=== PATIENT | male | born 1985 ===

== ENCOUNTER 2018-07-12 10:39 | Inpatient (IN) | payer MEDICAID ==
[2018-07-12] MEDS ORDERED: Sodium Chloride 0.9% 1,000 ML IV ONE (12:02)
[2018-07-12] MEDS ORDERED: Morphine 4 MG/ML VIAL IV STA (12:02)
[2018-07-12 12:14] LABS: BASO # 0.1 K/uL (0.0-0.2); BASO % 0.5 % (0.0-2.0); EOS % 0.1 % (0.0-4.0); HEMOGLOBIN 14.2 g/dL (12.0-18.0); LYMPH # 1.1 K/uL (1.0-4.3); LYMPH % 6.8 % (20.0-40.0); MEAN CELL VOLUME 89.4 fL (80.0-94.0); MEAN CORPUSCULAR HEMOGLOBIN 30.4 pg (27.0-31.0); MEAN CORPUSCULAR HGB CONC 34.1 g/dL (33.0-37.0); MEAN PLATELET VOLUME 7.7 fL (7.2-11.7); MONO # 1.7 K/uL (0.0-0.8); MONO % 10.1 % (0.0-10.0); NEUT # 13.6 K/uL (1.8-7.0); NEUT % 82.5 % (50.0-75.0); NRBC % 0.1 % (0.0-2.0); PLATELET COUNT 167 K/uL (130-400); RBC 4.67 Mil/uL (4.40-5.90); RED CELL DISTRIBUTION WIDTH 12.6 % (11.5-14.5); WHITE BLOOD COUNT 16.5 K/uL (4.8-10.8)
[2018-07-12 12:25] LABS: VENOUS BLOOD GAS BASE EXCESS 5.6 mmol/L (0.0-2.0); VENOUS BLOOD GAS PCO2 60 mmHg (40-60); VENOUS BLOOD GAS PO2 21 mm/Hg (30-55); VENOUS BLOOD PH 7.35 (7.32-7.43)
[2018-07-12 12:28] LABS: ALB/GLOB RATIO 1.2 (1.0-2.1); ALBUMIN 4.1 g/dL (3.5-5.0); ALT/SGPT 47 U/L (21-72); AST/SGOT 34 U/L (17-59); BLOOD UREA NITROGEN 8 mg/dL (9-20); CALCIUM 8.8 mg/dl (8.6-10.4); GFR NON-AFRICAN AMERICAN > 60
[2018-07-12 12:30] LABS: SQUAMOUS EPITHIAL < 1 /hpf (0-5); URINE BILIRUBIN NEGATIVE (NEGATIVE); URINE BLOOD 1+ (NEGATIVE); URINE CLARITY Clear (Clear); URINE COLOR Yellow (YELLOW); URINE GLUCOSE (UA) NORMAL (Normal); URINE LEUKOCYTE ESTERASE NEG Leu/uL (Negative); URINE PROTEIN NEGATIVE (NEGATIVE)
[2018-07-12] MEDS ORDERED: Morphine 4 MG/ML VIAL ONE (12:37)
[2018-07-12] MEDS ORDERED: Sodium Chloride 0.9% 1,000 ML ONE (12:37)
[2018-07-12 12:48] LABS: BARBITURATES, UR NEGATIVE (NEGATIVE); PHENCYCLIDINE, UR NEGATIVE (NEGATIVE)
--- NOTE | 2018-07-12 13:06 | CT ---
Date of service: 07/12/2018 PROCEDURE: CT Abdomen and Pelvis without intravenous contrast HISTORY: Right-sided abdominal pain COMPARISON: None TECHNIQUE: CT scan of the abdomen and pelvis was performed without administration of intravenous contrast. Oral contrast was not administered. Coronal and sagittal reformatted images were obtained. Radiation dose: Total exam DLP = 1089.33 mGy-cm. This CT exam was performed using one or more of the following dose reduction techniques: Automated exposure control, adjustment of the mA and/or kV according to patient size, and/or use of iterative reconstruction technique. FINDINGS: LOWER THORAX: The visualized lungs are clear. LIVER: Mild hepatomegaly and fatty liver. Focal area attenuation in the right hepatic lobe adjacent to the fundus of the gallbladder likely represents reactive edema. No gross lesion or ductal dilatation. GALLBLADDER AND BILE DUCTS: The gallbladder is distended and there is irregular gallbladder wall thickening and edema with pericholecystic fluid. No sonographic evidence for choledocholithiasis. PANCREAS: Normal in size. No gross lesion or ductal dilatation. SPLEEN: Mild splenomegaly. ADRENALS: Normal in size. No discrete nodule. KIDNEYS AND URETERS: Both kidneys are normal in size. No hydronephrosis or nephrolithiasis. VASCULATURE: Normal in caliber. No aortic aneurysm. No aortic atherosclerotic calcification or mural plaque present. BOWEL: Evaluation of the bowel is limited in the absence of oral contrast. The small bowel loops are normal in caliber. The colon is normal in size. There is moderate amount of stool in the colon. No bowel dilatation or wall thickening. No bowel obstruction. APPENDIX: Normal appendix. PERITONEUM: No free fluid. No free air. LYMPH NODES: No enlarged lymph nodes. BLADDER: Partially decompressed. REPRODUCTIVE: The prostate gland is normal in size. BONES: No acute fracture. Within normal limits for the patient's age. OTHER FINDINGS: None. IMPRESSION: 1. Distended gallbladder with irregular wall thickening/edema and pericholecystic fluid concerning for acute cholecystitis. Please correlate with right upper quadrant ultrasound. 2. Mild hepatosplenomegaly and fatty liver.
[2018-07-12 13:08] LABS: BENZODIAZEPINES, UR POSITIVE (NEGATIVE); OPIATES, UR POSITIVE (NEGATIVE)
[2018-07-12 13:37] LABS: MONOCYTE 9 % (0-10); PLATELET ESTIMATE NORMAL (NORMAL); TOTAL CELLS COUNTED 100
[2018-07-12 13:38] LABS: LYMPHOCYTE 9 % (20-40); NEUTROPHIL 82 % (50-75)
--- NOTE | 2018-07-12 13:47 | CT ---
CT right femur HISTORY: Pain. COMPARISON: None available. TECHNIQUE: Multiple contiguous axial images were performed through the right femur without the use of intravenous contrast. Subsequently, sagittal and coronal reformatted images were obtained. This CT exam was performed using one or more of the following dose reduction techniques: Automated exposure control, adjustment of the mA and/or kV according to patient size, and/or use of iterative reconstruction technique. Findings: No evidence of acute displaced fracture or dislocation. Mild narrowing of the right hip joint space. Mild femorotibial compartment joint space narrowing at the level of the knee joint. Mild lateral subluxation of the patella. Small suprapatellar joint effusion. Colonic diverticulosis. Impression: 1. No evidence of acute displaced fracture or dislocation. 2. Mild narrowing of the right hip joint space. 3. Mild femorotibial compartment joint space narrowing at the level of the knee joint. Mild lateral subluxation of the patella. Small suprapatellar joint effusion. If pain persists, consider correlation with MRI.
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
--- NOTE | 2018-07-12 15:27 | US ---
Date of service: 07/12/2018 HISTORY: r/o acute cholecystitis - CT done today COMPARISON: CT abdomen and pelvis performed earlier the same day. TECHNIQUE: Sonographic evaluation of the abdomen. FINDINGS: LIVER: Measures 16.4 cm. There is diffuse increased echogenicity of the liver parenchyma. There is a 1 5 x 1.5 x 1.3 cm well-circumscribed round homogeneously hyperechoic subcapsular lesion in the right hepatic lobe. There is an apparent 2.5 x 1.6 x 2.0 cm hypoechoic lesion in the right hepatic lobe adjacent to the gallbladder fossa. No intrahepatic bile duct dilatation. GALLBLADDER: The gallbladder is filled with echogenic sludge. There is diffuse wall thickening and edema. There is mild pericholecystic fluid. The sonographic Rawls's sign is negative. COMMON BILE DUCT: Measures 4.0 mm. No stones. No dilatation. PANCREAS: Unremarkable as visualized. No mass. No ductal dilatation. RIGHT KIDNEY: Measures 10.9cm. Normal echogenicity. No calculus, mass, or hydronephrosis. LEFT KIDNEY: Measures 10.9cm. Normal echogenicity. No calculus, mass, or hydronephrosis. SPLEEN: Enlarged and measures 16.4 cm. Normal echotexture AORTA: No aneurysmal dilatation. IVC: Unremarkable. OTHER FINDINGS: None. IMPRESSION: 1. Sludge filled gallbladder with thick irregular avila, wall edema and mild pericholecystic fluid. The sonographic Rawls's sign is negative. Findings could represent acalculous cholecystitis in the appropriate clinical setting. Clinical follow-up is advised. 2. 2.5 x 1.6 x 2.0 cm fluid density lesion with irregular avila in the right hepatic lobe adjacent to the gallbladder fossa could represent reactive fluid collection. There is lesion is not completely characterized. CT scan of the abdomen without and with intravenous contrast would be helpful for further characterization. 3. 1.5 cm smoothly marginated round subcapsular lesion in the right hepatic lobe is statistically most compatible with a hemangioma. 4. Mild hepatosplenomegaly and fatty liver.
[2018-07-12] MEDS ORDERED: Lactated Ringer's 1,000 ML IV SCH (16:30)
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
[2018-07-12] MEDS ORDERED: Lactated Ringer's 1,000 ML ONE (17:16)
[2018-07-12] MEDS ORDERED: Piperacillin/Tazobact 3.375 gm 100 ML IVPB ONE (17:16)
[2018-07-12] MEDS: Piperacill/Tazo 3.375gm in Dex 3.375 GM/50 ML BAG IVPB SCH ×2 (17:17→21:54)
[2018-07-12] MEDS: Lactated Ringer's 1,000 ML IV SCH (18:04)
[2018-07-12] MEDS: Docusate-Senna 50 mg-8.6 mg Tab PO SCH (20:25)
[2018-07-13] MEDS: Lactated Ringer's 1,000 ML IV SCH ×3 (01:50→18:30)
[2018-07-13] MEDS: Piperacill/Tazo 3.375gm in Dex 3.375 GM/50 ML BAG IVPB SCH ×4 (04:52→22:00)
[2018-07-13 07:40] LABS: BASO % 0.2 % (0.0-2.0); EOS % 0.2 % (0.0-4.0); HEMOGLOBIN 13.7 g/dL (12.0-18.0); LYMPH % 6.2 % (20.0-40.0); MEAN CELL VOLUME 88.3 fL (80.0-94.0); MEAN CORPUSCULAR HEMOGLOBIN 30.4 pg (27.0-31.0); MEAN CORPUSCULAR HGB CONC 34.4 g/dL (33.0-37.0); MEAN PLATELET VOLUME 8.4 fL (7.2-11.7); MONO # 1.7 K/uL (0.0-0.8); MONO % 10.9 % (0.0-10.0); NEUT # 12.9 K/uL (1.8-7.0); NEUT % 82.5 % (50.0-75.0); PLATELET COUNT 142 K/uL (130-400); RED CELL DISTRIBUTION WIDTH 12.5 % (11.5-14.5); WHITE BLOOD COUNT 15.6 K/uL (4.8-10.8)
[2018-07-13 07:59] LABS: INR 1.5; PROTHROMBIN TIME 16.9 SECONDS (9.7-12.2)
[2018-07-13 08:23] LABS: ALB/GLOB RATIO 1.2 (1.0-2.1); ALBUMIN 3.4 g/dL (3.5-5.0); ALT/SGPT 64 U/L (21-72); AST/SGOT 45 U/L (17-59); BLOOD UREA NITROGEN 9 mg/dL (9-20); CALCIUM 8.7 mg/dl (8.6-10.4); GFR NON-AFRICAN AMERICAN > 60
[2018-07-13 08:36] LABS: BANDS 5 % (0-2); LYMPHOCYTE 5 % (20-40); MONOCYTE 10 % (0-10); NEUTROPHIL 80 % (50-75); PLATELET ESTIMATE NORMAL (NORMAL); TOTAL CELLS COUNTED 100
[2018-07-13] MEDS: Docusate-Senna 50 mg-8.6 mg Tab PO SCH (09:47)
--- NOTE | 2018-07-13 10:37 | MRI ---
MRCP limited Indication: r/o Choledocholithiasis Technique: Multiplanar, multisequence MR images of the abdomen were obtained, including heavily T2 weighted MRCP images of the biliary system. Rotating maximum intensity projection images of the biliary system were generated. A total of 485 images were submitted for review. Comparison: Abdominal ultrasound 07/12/18, CT abdomen pelvis without contrast performed 07/12/18 Findings: Hepatomegaly. Distended gallbladder with gallbladder wall thickening/pericholecystic edema. Complex cystic structures containing fluid fluid levels are noted at the gallbladder fossa several of which may communicate with the gallbladder itself. There is no intrahepatic biliary ductal dilatation. The common bile duct appears within normal limits in caliber and tapers distally. The pancreatic duct appears within normal limits of caliber. No filling defects are seen in the common bile duct or pancreatic duct. 18 mm probable splenule. Splenomegaly. The adrenal glands, kidneys, and pancreas appear unremarkable. No bulky abdominal lymphadenopathy is seen. No ascites. No acute osseous abnormality is detected. Impression: No filling defects seen within the common bile duct which appears within normal limits of caliber. Distended gallbladder with gallbladder wall thickening pericholecystic edema consistent with history of acute cholecystitis. Correlate clinically. Additional complex cystic structures containing fluid fluid levels are noted at the gallbladder fossa, several of which may communicate with the gallbladder itself. Etiology of these findings unclear. Considerations include abscess, neoplasm, complex cysts. Correlate clinically. Splenomegaly. Hepatomegaly.
--- NOTE | 2018-07-13 11:10 | VASCLAB ---
Date of service: 07/12/2018 PROCEDURE: Right Lower Extremity Venous Duplex Exam. HISTORY: leg pain r/o DVT PRIORS: None. TECHNIQUE: Right common femoral, femoral, popliteal and posterior tibial, peroneal and great saphenous veins were evaluated. Flow was assessed with color Doppler, compressibility, assessment of phasic flow and augmentation response. Report prepared by TYREL El FINDINGS: RIGHT: 1. Common Femoral Vein: 1.1. Compressibility - Fully compressible: Thrombus - None: Flow - Phasic: Augmentation -Normal: Reflux - None. 2. Femoral Vein: 2.1. Compressibility - Fully compressible: Thrombus - None: Flow - Phasic: Augmentation -Normal: Reflux - None. 3. Popliteal Vein: 3.1. Compressibility - Fully compressible: Thrombus - None: Flow - Phasic: Augmentation -Normal: Reflux - None. 4. Posterior Tibial Vein: 4.1. Compressibility - Fully compressible: Thrombus - None: Flow - Phasic: Augmentation -Normal: Reflux - None. 5. Peroneal Vein: 5.1. Compressibility - Fully compressible: Thrombus - None: Flow - Phasic: Augmentation -Normal: Reflux - None. 6. Great Saphenous Vein: 6.1. Compressibility - Fully compressible: Thrombus -None: Flow - Phasic: Augmentation - Normal: Reflux - None. OTHER FINDINGS: Normal venous flow noted in the LEFT common femoral vein. IMPRESSION: No evidence of deep or superficial vein thrombosis of the right lower extremity with excellent venous flow. Normal valve function noted of the right side.
--- NOTE | 2018-07-13 11:47 | NM ---
Date of service: 07/12/2018 PROCEDURE: Nuclear Medicine Hepatobiliary Scan HISTORY: r/o Acute Cholecystitis COMPARISON: July 12, 2018. Abdominal ultrasound. July 12, 2018. CT abdomen and pelvis. July 13, 2018. MRCP. TECHNIQUE: 6.0 mCi of technetium 99m Mebrofenin was administered intravenously. Planar images of the abdomen were obtained at 5 min intervals to 60 mins. Delayed images were also obtained. FINDINGS: LIVER: Timely and homogenous uptake. COMMON BILE DUCT: identified at 15 mins. GALLBLADDER: Not visible at 03:00 hours SMALL BOWEL: Identified at 20 mins. IMPRESSION: Abnormal hepatobiliary Scan. The cystic duct is occluded presumptive evidence for acute cholecystitis. Findings consistent with correlate of cross-sectional imaging. Concordant findings (preliminary report) provided by [employer].
--- NOTE | 2018-07-13 13:20 | CP.PCM.PN ---
<Israel Meza - Last Filed: 07/13/18 14:09> Subjective - Date & Time of Evaluation Date of Evaluation: 07/13/18 Time of Evaluation: 13:20 - Subjective Subjective: PGY-1 Medicine Progress Note for Dr. Puga Patient seen and examined at bedside, in no acute distress. No overnight events reported. Patient reports improvement of abdominal and LE pain with medications. No reported n/v/d/c. 12 pt ROS reviewed and otherwise negative. Objective - Vital Signs/Intake and Output Vital Signs (last 24 hours): Temp Pulse Resp BP Pulse Ox 99 F 98 H 20 103/65 95 07/13/18 10:47 07/13/18 08:29 07/13/18 08:29 07/13/18 08:29 07/13/18 08:29 - Medications Medications: Current Medications Acetaminophen (Tylenol 325mg Tab) 650 mg PO Q6 PRN PRN Reason: Fever >100.4 F Last Admin: 07/13/18 09:47 Dose: 650 mg Piperacillin Sod/Tazobactam Sod (Zosyn 3.375 Gm Iv Premix) 3.375 gm in 50 mls @ 100 mls/hr IVPB Q6H [facility]; Protocol Last Admin: 07/13/18 09:53 Dose: 100 mls/hr Lactated Ringer's (Lactated Ringer's) 1,000 mls @ 120 mls/hr IV .Q8H20M ON LICENSE OF [facility] Last Admin: 07/13/18 12:10 Dose: Not Given Ketorolac Tromethamine (Toradol) 30 mg IVP Q6 PRN PRN Reason: Pain, Mild (1-3) Last Admin: 07/13/18 07:30 Dose: 30 mg Ondansetron HCl (Zofran Inj) 4 mg IVP Q4 PRN PRN Reason: Nausea/Vomiting Last Admin: 07/13/18 07:24 Dose: 4 mg Pantoprazole Sodium (Protonix Inj) 40 mg IVP DAILY ON LICENSE OF [facility] Last Admin: 07/13/18 09:52 Dose: Not Given Pneumococcal Polyvalent Vaccine (Pneumovax 23 Vaccine) 0.5 ml IM .ONCE ONE Stop: 07/16/18 10:01 Senna/Docusate Sodium (Senokot S 50 Mg-8.6 Mg) 1 tab PO DAILY ON LICENSE OF [facility] Last Admin: 07/13/18 09:47 Dose: 1 tab - Labs Labs: 07/13/18 07:13 07/13/18 07:13 PT 16.9 SECONDS (9.7-12.2) H 07/13/18 07:13 INR 1.5 07/13/18 07:13 APTT 35.0 SECONDS (21-34) H 07/13/18 07:13 - Constitutional Appears: No Acute Distress - Head Exam Head Exam: ATRAUMATIC, NORMAL INSPECTION, NORMOCEPHALIC - Eye Exam Eye Exam: EOMI, Normal appearance, PERRL Pupil Exam: NORMAL ACCOMODATION - ENT Exam ENT Exam: Mucous Membranes Moist, Normal Exam - Neck Exam Neck Exam: Full ROM, Normal Inspection - Respiratory Exam Respiratory Exam: Clear to Ausculation Bilateral, NORMAL BREATHING PATTERN. absent: Accessory Muscle Use, Rales, Rhonchi, Wheezes, Respiratory Distress, Stridor - Cardiovascular Exam Cardiovascular Exam: REGULAR RHYTHM, +S1, +S2 - GI/Abdominal Exam GI & Abdominal Exam: Soft, Tenderness (mild TTP RUQ, epigastrium). absent: Distended, Firm, Guarding, Rigid, Rebound - Extremities Exam Extremities Exam: Full ROM, Normal Capillary Refill, Normal Inspection. absent: Calf Tenderness, Pedal Edema - Back Exam Back Exam: NORMAL INSPECTION - Neurological Exam Neurological Exam: Alert, Awake, Oriented x3 - Skin Skin Exam: Dry, Intact, Normal Color, Warm Assessment and Plan - Assessment and Plan (Free Text) Assessment: 33 year old male with no pmhx presenting to ED with acute onset, worsening R anterior/lateral thigh pain with associated generalized abdominal pain. CT findings suggestive of cholecystitis. Plan: Sepsis -T max of 102 on admission -WBC 16.5 on admission with neutrophilia -tachycardic on admission -lactate wnl -urine culture: no growth -f/u blood culture -procalcitonin 1.68 -LR @ 120 cc/hr -zosyn 3.375 g IVP q6 for empiric abx coverage -zofran 4 mg IVP q4 prn for nausea -tylenol 650 mg PO q6 prn for fever Acute cholecystitis -negative Rawls on PE -mild TTP of RUE, epigastrium -total bilirubin 2.1 -Surgery (Dr. Wylie) consulted -HIDA (07/13): abnormal scan. Cystic duct is occluded with evidence for acute cholecystitis. -MRCP: no filling defects within the CBD. Distended gallbladder with wall thickening. Additional complex cystic structures containing fluid filled levels are noted at the gallbladder fossa, several of which communicate with gallbladder itself. -NPO after MN -plans for OR tomorrow -CT abdomen/pelvis w/o contrast: distended gallbladder with irregular wall thickening/edema and pericholecystic fluid concerning for acute cholecystitis. Mild HSM and fatty liver -Abdominal u/s: sludge filled gallbladder with thick irregular avila, wall edema, mild pericholecystic fluid. 2.5 x 1.6 x 2.0 cm fluid density lesion with irregular avila in the R hepatic lobe adjacent to gallbladder fossa could represent reactive fluid collection. Lesion is not completely characterized. 1.5 cm smoothly marginated round subcapsular lesion in R hepatic lobe most compatible with a hemangioma. Mild HSM and fatty liver. Right Thigh Pain -negative SLR, FABERE/FADIR, Cristian's test on PE -CT R femur: Mild femorotibial compartment joint space narrowing at level of knee joint. Mild lateral subluxation of patella. Small suprapatellar joint effusion. -suspected referred pain (?) -toradol 30 mg IVP q6 prn Constipation -likely 2/2 percocet use -Senokot 1 tab PO daily PPx, Diet, Disposition -DVT ppx: scds, lovenox 40 mg SC daily -GI ppx: protonix 40 mg IVP daily -Diet: NPO after MN Dispo: plan for OR tomorrow, NPO after MN Case discussed with Dr. Vivien Meza DO, PGY-1 <Samy Puga H - Last Filed: 07/13/18 15:08> Objective - Vital Signs/Intake and Output Vital Signs (last 24 hours): Temp Pulse Resp BP Pulse Ox 99 F 98 H 20 103/65 95 07/13/18 10:47 07/13/18 08:29 07/13/18 08:29 07/13/18 08:29 07/13/18 08:29 - Medications Medications: Current Medications Acetaminophen (Tylenol 325mg Tab) 650 mg PO Q6 PRN PRN Reason: Fever >100.4 F Last Admin: 07/13/18 09:47 Dose: 650 mg Piperacillin Sod/Tazobactam Sod (Zosyn 3.375 Gm Iv Premix) 3.375 gm in 50 mls @ 100 mls/hr IVPB Q6H ON LICENSE OF [facility]; Protocol Last Admin: 07/13/18 09:53 Dose: 100 mls/hr Lactated Ringer's (Lactated Ringer's) 1,000 mls @ 120 mls/hr IV .Q8H20M ON LICENSE OF [facility] Last Admin: 07/13/18 12:10 Dose: Not Given Ketorolac Tromethamine (Toradol) 30 mg IVP Q6 PRN PRN Reason: Pain, Mild (1-3) Last Admin: 07/13/18 07:30 Dose: 30 mg Ondansetron HCl (Zofran Inj) 4 mg IVP Q4 PRN PRN Reason: Nausea/Vomiting Last Admin: 07/13/18 07:24 Dose: 4 mg Pantoprazole Sodium (Protonix Inj) 40 mg IVP DAILY ON LICENSE OF [facility] Last Admin: 07/13/18 09:52 Dose: Not Given Pneumococcal Polyvalent Vaccine (Pneumovax 23 Vaccine) 0.5 ml IM .ONCE ONE Stop: 07/16/18 10:01 Senna/Docusate Sodium (Senokot S 50 Mg-8.6 Mg) 1 tab PO DAILY ON LICENSE OF [facility] Last Admin: 07/13/18 09:47 Dose: 1 tab - Labs Labs: 07/13/18 07:13 07/13/18 07:13 PT 16.9 SECONDS (9.7-12.2) H 07/13/18 07:13 INR 1.5 07/13/18 07:13 APTT 35.0 SECONDS (21-34) H 07/13/18 07:13 Attending/Attestation - Attestation I have personally seen and examined this patient.: Yes I have fully participated in the care of the patient.: Yes I have reviewed all pertinent clinical information, including history, physical exam and plan: Yes Notes (Text): 07/13/18 15:04 Medical attending: Patient was seen and examined by me. Agree with the above n ote by the resident The patient was not in any acute distress. His family members were also at [facility] In the morning he reported some nausea and vomiting, however by the time we saw him after 1 pm he reported he felt much better than previous The patient has been getting IVF, IV abx. He is pending surgery for tommorow. Samy Puga
--- NOTE | 2018-07-13 15:46 | CP.PCM.PN ---
<Tal Gonzalez - Last Filed: 07/13/18 15:49> Subjective - Date & Time of Evaluation Date of Evaluation: 07/13/18 Time of Evaluation: 07:00 - Subjective Subjective: General Surgery Note for Dr. Wylie Patient seen and examined at bedside. No acute event overnight. Patient still reports pain nausea. Denies fever/chills or vomiting. Patient reports to not having BM but passing flatus. HIDA was positive. Objective - Vital Signs/Intake and Output Vital Signs (last 24 hours): Temp Pulse Resp BP Pulse Ox 99 F 98 H 20 103/65 95 07/13/18 10:47 07/13/18 08:29 07/13/18 08:29 07/13/18 08:29 07/13/18 08:29 - Medications Medications: Current Medications Acetaminophen (Tylenol 325mg Tab) 650 mg PO Q6 PRN PRN Reason: Fever >100.4 F Last Admin: 07/13/18 09:47 Dose: 650 mg Piperacillin Sod/Tazobactam Sod (Zosyn 3.375 Gm Iv Premix) 3.375 gm in 50 mls @ 100 mls/hr IVPB Q6H [facility]; Protocol Last Admin: 07/13/18 09:53 Dose: 100 mls/hr Lactated Ringer's (Lactated Ringer's) 1,000 mls @ 120 mls/hr IV .Q8H20M [facility] Last Admin: 07/13/18 12:10 Dose: Not Given Ketorolac Tromethamine (Toradol) 30 mg IVP Q6 PRN PRN Reason: Pain, Mild (1-3) Last Admin: 07/13/18 15:23 Dose: 30 mg Ondansetron HCl (Zofran Inj) 4 mg IVP Q4 PRN PRN Reason: Nausea/Vomiting Last Admin: 07/13/18 07:24 Dose: 4 mg Pantoprazole Sodium (Protonix Inj) 40 mg IVP DAILY [facility] Last Admin: 07/13/18 09:52 Dose: Not Given Pneumococcal Polyvalent Vaccine (Pneumovax 23 Vaccine) 0.5 ml IM .ONCE ONE Stop: 07/16/18 10:01 Senna/Docusate Sodium (Senokot S 50 Mg-8.6 Mg) 1 tab PO DAILY [facility] Last Admin: 07/13/18 09:47 Dose: 1 tab - Labs Labs: 07/13/18 07:13 07/13/18 07:13 PT 16.9 SECONDS (9.7-12.2) H 07/13/18 07:13 INR 1.5 07/13/18 07:13 APTT 35.0 SECONDS (21-34) H 07/13/18 07:13 - Additional Findings Additional findings: - Constitutional Appears: Non-toxic, No Acute Distress - Head Exam Head Exam: ATRAUMATIC - Eye Exam Eye Exam: EOMI. absent: Scleral icterus - ENT Exam ENT Exam: Mucous Membranes Moist - Respiratory Exam Respiratory Exam: NORMAL BREATHING PATTERN. absent: Accessory Muscle Use, Respiratory Distress - Cardiovascular Exam Cardiovascular Exam: REGULAR RHYTHM. absent: Bradycardia, Tachycardia - GI/Abdominal Exam GI & Abdominal Exam: Soft, Tenderness (RUQ, Negative Rawls). absent: Firm, Guarding, Rigid - Extremities Exam Extremities exam: Negative for: calf tenderness - Neurological Exam Neurological exam: Alert, Oriented x3 - Psychiatric Exam Psychiatric exam: Normal Affect - Skin Skin Exam: Intact, Warm Assessment and Plan - Assessment and Plan (Free Text) Assessment: 33M with Acute Cholecystitis Plan: - NPO past MN - IVF - IVAbx - Pain control PRN - Plan for robotic cholecystectomy in OR on 07/14 - discussed with Dr. Inessa Gonzalez PGY2 <Vishal Wylie B - Last Filed: 07/17/18 22:49> Objective - Vital Signs/Intake and Output Vital Signs (last 24 hours): Temp Pulse Resp BP Pulse Ox 99.8 F H 71 20 149/88 97 07/17/18 00:00 07/17/18 00:00 07/17/18 00:00 07/17/18 00:00 07/17/18 00:00 - Labs Labs: 07/17/18 06:19 07/17/18 06:19 PT 16.3 SECONDS (9.7-12.2) H 07/14/18 06:34 INR 1.5 07/14/18 06:34 APTT 32.0 SECONDS (21-34) 07/14/18 06:34 Attending/Attestation - Attestation I have personally seen and examined this patient.: Yes I have fully participated in the care of the patient.: Yes I have reviewed all pertinent clinical information, including history, physical exam and plan: Yes Notes (Text): Pt was seen and examined at bedside Agree with above note and assessment Pt is improving clinically MRCP is negative for CBD stone OR for Lap Cholecystectomy tomorrow Consent NPO, IVF IV antibiotics Plan d.w pt in detail Risk and benefit explained in detail.
[2018-07-13] MEDS ORDERED: Phytonadione 10 mg/ml Inj (Adult) IV STA (16:06)
--- NOTE | 2018-07-13 17:43 | RAD ---
Date of service: 07/13/2018 HISTORY: surgery COMPARISON: No prior. TECHNIQUE: Chest PA and lateral views FINDINGS: LUNGS: No active pulmonary disease. PLEURA: No significant pleural effusion identified. No pneumothorax apparent. CARDIOVASCULAR: No aortic atherosclerotic calcification present. Normal cardiac size. No pulmonary vascular congestion. OSSEOUS STRUCTURES: No significant abnormalities. VISUALIZED UPPER ABDOMEN: Normal. OTHER FINDINGS: None. IMPRESSION: No active disease.
[2018-07-14] MEDS: Lactated Ringer's 1,000 ML IV SCH ×4 (01:34→20:09)
[2018-07-14] MEDS: Piperacill/Tazo 3.375gm in Dex 3.375 GM/50 ML BAG IVPB SCH ×3 (03:31→16:30)
[2018-07-14 06:49] LABS: BASO % 0.2 % (0.0-2.0); EOS # 0.1 K/uL (0.0-0.7); EOS % 0.8 % (0.0-4.0); HEMOGLOBIN 13.1 g/dL (12.0-18.0); LYMPH # 1.2 K/uL (1.0-4.3); LYMPH % 10.4 % (20.0-40.0); MEAN CELL VOLUME 87.7 fL (80.0-94.0); MEAN CORPUSCULAR HEMOGLOBIN 30.4 pg (27.0-31.0); MEAN CORPUSCULAR HGB CONC 34.6 g/dL (33.0-37.0); MEAN PLATELET VOLUME 8.5 fL (7.2-11.7); MONO # 0.9 K/uL (0.0-0.8); MONO % 8.1 % (0.0-10.0); NEUT # 9.5 K/uL (1.8-7.0); NEUT % 80.5 % (50.0-75.0); NRBC % 0.1 % (0.0-2.0); RBC 4.33 Mil/uL (4.40-5.90); RED CELL DISTRIBUTION WIDTH 12.6 % (11.5-14.5); WHITE BLOOD COUNT 11.8 K/uL (4.8-10.8)
[2018-07-14 06:58] LABS: INR 1.5; PROTHROMBIN TIME 16.3 SECONDS (9.7-12.2)
[2018-07-14 07:47] LABS: ALB/GLOB RATIO 1.1 (1.0-2.1); ALBUMIN 3.3 g/dL (3.5-5.0); ALT/SGPT 47 U/L (21-72); AST/SGOT 29 U/L (17-59); BLOOD UREA NITROGEN 8 mg/dL (9-20); CALCIUM 8.4 mg/dl (8.6-10.4); GFR NON-AFRICAN AMERICAN > 60
[2018-07-14] MEDS: Docusate-Senna 50 mg-8.6 mg Tab PO SCH (09:11)
[2018-07-14] MEDS ORDERED: Potassium & Sodium Phosphate PO ONE (09:49)
--- NOTE | 2018-07-14 09:51 | CP.PCM.PN ---
<Israel Meza - Last Filed: 07/14/18 12:15> Subjective - Date & Time of Evaluation Date of Evaluation: 07/14/18 Time of Evaluation: 09:50 - Subjective Subjective: PGY-1 Medicine Progress Note for Dr. Puga Patient seen and examined resting at bedside with girlfriend present. No acute overnight events reported. Pain is improved from admission, scheduled for robotic cholecystectomy this afternoon. Patient aware of plans. Objective - Vital Signs/Intake and Output Vital Signs (last 24 hours): Temp Pulse Resp BP Pulse Ox 98.7 F 79 20 110/69 99 07/14/18 08:00 07/14/18 08:00 07/14/18 08:00 07/14/18 08:00 07/14/18 08:00 Intake and Output: 07/14/18 07/14/18 06:59 18:59 Intake Total 960 Balance 960 - Medications Medications: Current Medications Acetaminophen (Tylenol 325mg Tab) 650 mg PO Q6 PRN PRN Reason: Fever >100.4 F Last Admin: 07/13/18 09:47 Dose: 650 mg Piperacillin Sod/Tazobactam Sod (Zosyn 3.375 Gm Iv Premix) 3.375 gm in 50 mls @ 100 mls/hr IVPB Q6H [facility]; Protocol Last Admin: 07/14/18 03:31 Dose: 100 mls/hr Lactated Ringer's (Lactated Ringer's) 1,000 mls @ 120 mls/hr IV .Q8H20M [facility] Last Admin: 07/14/18 03:32 Dose: Not Given Potassium Chloride (Potassium Chloride 20 Meq/100 Ml) 20 meq in 100 mls @ 50 mls/hr IVPB ONCE ONE Stop: 07/14/18 11:47 Ketorolac Tromethamine (Toradol) 30 mg IVP Q6 PRN PRN Reason: Pain, Mild (1-3) Last Admin: 07/14/18 06:26 Dose: 30 mg Ondansetron HCl (Zofran Inj) 4 mg IVP Q4 PRN PRN Reason: Nausea/Vomiting Last Admin: 07/13/18 07:24 Dose: 4 mg Pantoprazole Sodium (Protonix Inj) 40 mg IVP DAILY [facility] Last Admin: 07/13/18 09:52 Dose: Not Given Pneumococcal Polyvalent Vaccine (Pneumovax 23 Vaccine) 0.5 ml IM .ONCE ONE Stop: 07/16/18 10:01 Potassium Phos/Sodium Phos (Neutra-Phos) 1 pkt PO ONCE ONE Stop: 07/14/18 09:50 Senna/Docusate Sodium (Senokot S 50 Mg-8.6 Mg) 1 tab PO DAILY [facility] Last Admin: 07/14/18 09:11 Dose: Not Given - Labs Labs: 07/14/18 06:34 07/14/18 06:34 PT 16.3 SECONDS (9.7-12.2) H 07/14/18 06:34 INR 1.5 07/14/18 06:34 APTT 32.0 SECONDS (21-34) 07/14/18 06:34 - Constitutional Appears: Non-toxic, No Acute Distress - Head Exam Head Exam: ATRAUMATIC, NORMAL INSPECTION, NORMOCEPHALIC - Eye Exam Eye Exam: EOMI, Normal appearance, PERRL - ENT Exam ENT Exam: Mucous Membranes Moist, Normal Exam - Neck Exam Neck Exam: Full ROM, Normal Inspection - Respiratory Exam Respiratory Exam: Clear to Ausculation Bilateral, NORMAL BREATHING PATTERN. absent: Accessory Muscle Use, Rales, Rhonchi, Wheezes, Respiratory Distress, Stridor - Cardiovascular Exam Cardiovascular Exam: REGULAR RHYTHM, +S1, +S2 - GI/Abdominal Exam GI & Abdominal Exam: Soft, Tenderness (milder), Normal Bowel Sounds. absent: Distended, Firm, Guarding, Rigid, Rebound - Extremities Exam Extremities Exam: Full ROM, Normal Capillary Refill, Normal Inspection. absent: Calf Tenderness, Pedal Edema - Back Exam Back Exam: NORMAL INSPECTION - Neurological Exam Neurological Exam: Alert, Awake, Oriented x3 - Skin Skin Exam: Dry, Intact, Normal Color, Warm Assessment and Plan - Assessment and Plan (Free Text) Assessment: 33 year old male with no pmhx presenting to ED with acute onset, worsening R anterior/lateral thigh pain with associated generalized abdominal pain. CT findings suggestive of cholecystitis. Plan: Acute cholecystitis -Surgery (Dr. Wylie) consulted -HIDA (07/13): abnormal scan. Cystic duct is occluded with evidence for acute cholecystitis. -MRCP: no filling defects within the CBD. Distended gallbladder with wall thickening. Additional complex cystic structures containing fluid filled levels are noted at the gallbladder fossa, several of which communicate with gallbladder itself. -scheduled for OR this PM -CT abdomen/pelvis w/o contrast: distended gallbladder with irregular wall thickening/edema and pericholecystic fluid concerning for acute cholecystitis. Mild HSM and fatty liver -Abdominal u/s: sludge filled gallbladder with thick irregular avila, wall edema, mild pericholecystic fluid. 2.5 x 1.6 x 2.0 cm fluid density lesion with irregular avila in the R hepatic lobe adjacent to gallbladder fossa could represent reactive fluid collection. Lesion is not completely characterized. 1.5 cm smoothly marginated round subcapsular lesion in R hepatic lobe most compatible with a hemangioma. Mild HSM and fatty liver. Sepsis, improved -T max of 102 on admission. vitals currently stable -WBC 16.5 on admission-->11.8 (07/14) -procalcitonin 1.68 -lactate wnl -urine culture: no growth -blood culture: no growth x 24 hrs -LR @ 120 cc/hr -zosyn 3.375 g IVP q6 for empiric abx coverage -zofran 4 mg IVP q4 prn for nausea -tylenol 650 mg PO q6 prn for fever Right Thigh Pain, improved -CT R femur: Mild femorotibial compartment joint space narrowing at level of knee joint. Mild lateral subluxation of patella. Small suprapatellar joint effusion. -suspected referred pain (?) -toradol 30 mg IVP q6 prn Constipation -likely 2/2 percocet use -Senokot 1 tab PO daily PPx, Diet, Disposition -DVT ppx: scds, lovenox 40 mg SC daily -GI ppx: protonix 40 mg IVP daily -Diet: NPO Dispo: plan for OR this afternoon Case discussed with Dr. Vivien Meza DO, PGY-1 <Samy Puga - Last Filed: 07/14/18 13:29> Objective - Vital Signs/Intake and Output Vital Signs (last 24 hours): Temp Pulse Resp BP Pulse Ox 98.7 F 79 20 110/69 99 07/14/18 08:00 07/14/18 08:00 07/14/18 08:00 07/14/18 08:00 07/14/18 08:00 Intake and Output: 07/14/18 07/14/18 06:59 18:59 Intake Total 960 Balance 960 - Medications Medications: Current Medications Acetaminophen (Tylenol 325mg Tab) 650 mg PO Q6 PRN PRN Reason: Fever >100.4 F Last Admin: 07/13/18 09:47 Dose: 650 mg Piperacillin Sod/Tazobactam Sod (Zosyn 3.375 Gm Iv Premix) 3.375 gm in 50 mls @ 100 mls/hr IVPB Q6H [facility]; Protocol Last Admin: 07/14/18 11:30 Dose: 100 mls/hr Lactated Ringer's (Lactated Ringer's) 1,000 mls @ 120 mls/hr IV .Q8H20M [facility] Last Admin: 07/14/18 11:32 Dose: Not Given Ketorolac Tromethamine (Toradol) 30 mg IVP Q6 PRN PRN Reason: Pain, Mild (1-3) Last Admin: 07/14/18 06:26 Dose: 30 mg Ondansetron HCl (Zofran Inj) 4 mg IVP Q4 PRN PRN Reason: Nausea/Vomiting Last Admin: 07/13/18 07:24 Dose: 4 mg Pantoprazole Sodium (Protonix Inj) 40 mg IVP DAILY [facility] Last Admin: 07/14/18 10:10 Dose: 40 mg Pneumococcal Polyvalent Vaccine (Pneumovax 23 Vaccine) 0.5 ml IM .ONCE ONE Stop: 07/16/18 10:01 Senna/Docusate Sodium (Senokot S 50 Mg-8.6 Mg) 1 tab PO DAILY [facility] Last Admin: 07/14/18 09:11 Dose: Not Given - Labs Labs: 07/14/18 06:34 07/14/18 06:34 PT 16.3 SECONDS (9.7-12.2) H 07/14/18 06:34 INR 1.5 07/14/18 06:34 APTT 32.0 SECONDS (21-34) 07/14/18 06:34 Attending/Attestation - Attestation I have personally seen and examined this patient.: Yes I have fully participated in the care of the patient.: Yes I have reviewed all pertinent clinical information, including history, physical exam and plan: Yes Notes (Text): Medical attending: Patient was seen and examined by me. Agree with the above note by the resident. When we saw him this morning he was pending going to the OR later in the day. At this time he remains on IV abx, IVF, and is currently NPO for the OR later today Samy Puga
[2018-07-14] MEDS ORDERED: Bupivacaine Liposomal Inj 20 ml INFIL ONE (15:05)
[2018-07-14] MEDS ORDERED: Midazolam 2 MG/2 ML VIAL ONE (15:46)
[2018-07-14] MEDS ORDERED: Propofol 10 mg/ml Inj (20 ML) ONE (15:46)
[2018-07-14] MEDS ORDERED: Bupivacaine 0.25% 20 ML INJ IJ ONE (15:50)
[2018-07-14] MEDS ORDERED: Lidocaine/Epinephrine 1% 1:100000 10 ML IJ ONE (15:50)
[2018-07-14] MEDS ORDERED: Sodium Chloride 0.9% 40 ML IV ONE (15:50)
[2018-07-14] MEDS ORDERED: ceFAZolin 1 gm in NS 2 GM/200 ML BAG IVPB ONE (15:51)
[2018-07-14] MEDS ORDERED: Rocuronium 10 mg/ml (5 ml) ONE (16:53)
[2018-07-14] MEDS ORDERED: Neostigmine 1:1000 (1 mg/ml) Inj ONE (17:48)
[2018-07-14] MEDS: HYDROmorphone 0.5 mg/0.5 ml ISec IVP PRN ×4 (17:54→21:37)
[2018-07-14] MEDS ORDERED: Morphine 4 MG/ML VIAL ONE (18:13)
[2018-07-14] MEDS ORDERED: Lactated Ringer's 1,000 ML IV ONE (18:36)
--- NOTE | 2018-07-14 19:13 | PCM.SURG1 ---
Surgeon's Initial Post Op Note - Surgeon's Notes Surgeon: Dr. Wylie Disability Specialist: Ilda Hazel PGY2 Type of Anesthesia: General Endo, Local Anesthesia Administered By: Dr. Tomlinson Pre-Operative Diagnosis: Acute on chronic Cholecystitis Operative Findings: Acute on Chronic Cholecystitis; Purulent Gallbladder Abscess and Liver Abscess Post-Operative Diagnosis: 1) Acute on Chronic Cholecystitis. 2) Liver Abscess. 3) Gallbladder Abscess Operation Performed: Robot Assisted Cholecystectomy. Extensive Lysis of Adhesions. Drainage of Liver and Gallbladder Abscess. Liver Biopsy. Specimen/Specimens Removed: Gallblader. Gallbladder and Liver Abscess culture. Liver Biopsy Estimated Blood Loss: EBL {In ML}: 100 Blood Products Given: N/A Drains Used: Jose Elias Post-Op Condition: Good Date of Surgery/Procedure: 07/14/18 Time of Surgery/Procedure: 19:14
[2018-07-14] MEDS: Meropenem 1 GM in Sodium Chloride 0.9% 100 ML IVPB SCH (21:38)
[2018-07-14] MEDS: metroNIDAZOLE IV 500 mg/100 ml 500 MG/100 ML BAG IVPB SCH (23:04)
[2018-07-14] MEDS: Oxycodone/Acetaminophen 5/325 mg Tab PO PRN (23:55)
[2018-07-15 01:01] VITALS: RESP 20
[2018-07-15] MEDS: HYDROmorphone 0.5 mg/0.5 ml ISec IVP PRN ×2 (01:35→05:29)
[2018-07-15] MEDS: Lactated Ringer's 1,000 ML IV SCH ×5 (01:35→23:23)
[2018-07-15] MEDS: Meropenem 1 GM in Sodium Chloride 0.9% 100 ML IVPB SCH ×3 (03:58→20:26)
[2018-07-15] MEDS: metroNIDAZOLE IV 500 mg/100 ml 500 MG/100 ML BAG IVPB SCH ×3 (05:04→22:00)
--- NOTE | 2018-07-15 05:53 | OP ---
PROCEDURE DATE: 07/14/2018 PREOPERATIVE DIAGNOSES: 1. Acute cholecystitis and cholelithiasis. 2. Severe leukocytosis. POSTOPERATIVE DIAGNOSIS: 1. Acute on chronic cholecystitis with cholelithiasis. 2. Gallbladder abscess. 3. Liver abscess. 4. Extensive postinflammatory phlegmonous changes in the right upper quadrant. PROCEDURE DONE: 1. Robotic drainage of gallbladder abscess. 2. Robotic drainage of liver abscess. 3. Robotic cholecystectomy. 4. Robotic extensive lysis of adhesions and enterolysis. 5. Robotic indocyanine green fluoroscopy and angiography. 6. Liver biopsy. SURGEON: Vishal Wylie MD DIRECTOR OF ONCOLOGY: KYLE Ward and Duane Hazel, PGY-2 resident. TYPE OF ANESTHESIA: General endotracheal tube anesthesia. ESTIMATED BLOOD LOSS: Around 50 mL. DRAIN: A 19-[place]vian Jose Elias drain was placed to drain the liver abscess. COMPLICATIONS: None. INTRAOPERATIVE FINDINGS: The patient had acute on chronic phlegmonous cholecystitis with gallbladder abscess and liver abscess and the patient had extensive phlegmonous changes and it took approximately 60 to 80 minutes extra for the routine procedure and the large liver abscess was identified that was drained and the patient also had a gallbladder abscess that was also drained. DESCRIPTION OF PROCEDURE: On intraoperative steps, this is a 53-year-old male, who was admitted with diagnosis of acute cholecystitis and cholelithiasis and the patient also had very high white count and the patient was consented for robotic cholecystectomy possible open. Brought to the OR, placed supine on the operating table. After induction of the anesthesia, the abdomen was prepped and draped in the usual sterile fashion and local anesthesia was injected. A supraumbilical incision was made. The 8 mm port was placed. Another three 8 mm port was placed in the upper abdomen. The robot was brought in. Camera arm as well as arm 1 and arm 2 were docked. The patient was found to have a large phlegmonous changes around the gallbladder as well as the phlegmonous mass and first an extensive lysis of adhesion was done and the omentum, duodenum, as well as the colon was dissected free from the gallbladder and the patient was found to have a necrotic gallbladder fundus with large gallbladder abscess. First, the gallbladder abscess was drained completely and then the dissection was carried down to infundibulum and the dissection was done to identify the cystic duct and cystic artery. The intraoperative Firefly was used to identify the ductal anatomy and the cystic duct and cystic artery were divided between the two clips and total three clips were placed and the gallbladder was dissected. During the removal of the gallbladder, the patient was found to have another big abscess under the liver bed and that was also drained and the gallbladder was sent off the table for the pathology. Now, liver biopsy was done and liver biopsy specimen was sent off the table for the pathology. There was a proper hemostasis in each and every part of the procedure. The 19-Latvian Jose Elias drain was placed and the proper hemostasis was achieved. All the ports were taken out under vision. The Pneumo was deflated. The pus was sent for the culture and sensitivity, and after proper hemostasis, all the ports were taken out under vision. The Pneumo was deflated. The umbilical port site was closed in two layers, the fascia with 0 Vicryl interrupted suture and the skin with a 4-0 Monocryl. A dry sterile dressing was applied. The patient tolerated the procedure well. Count of instrument and gauze was correct. There was no apparent complication. The patient was extubated in OR, sent to the postanesthesia care unit in stable condition. Vishal Wylie MD
[2018-07-15] MEDS: Oxycodone/Acetaminophen 5/325 mg Tab PO PRN (06:42)
--- NOTE | 2018-07-15 07:56 | CP.PCM.PN ---
<Jazzmine Laguna - Last Filed: 07/15/18 08:18> Subjective - Date & Time of Evaluation Date of Evaluation: 07/15/18 Time of Evaluation: 07:54 - Subjective Subjective: General surgery consult note for Dr. Wylie-Jazzmine Laguna, PGY-2 Pt seen/examined at bedside with surgical team Pt reports pain not well controlled overnight. Was able to ambulate immediately post op because pain was well controlled, however anesthesia wore off and pain was not sufficiently controlled overnight. Denies F & C, N & V. Voiding. No other complaints at this time. BREANA drain in place with ~15 mls serosanguinous output, 50mls/12hrs reported. Objective - Vital Signs/Intake and Output Vital Signs (last 24 hours): Temp Pulse Resp BP Pulse Ox 99.1 F 97 H 20 118/67 97 07/15/18 00:00 07/15/18 00:00 07/15/18 00:00 07/15/18 00:00 07/15/18 00:00 Intake and Output: 07/15/18 07/15/18 06:59 18:59 Intake Total 200 1400 Output Total 30 50 Balance 170 1350 - Medications Medications: Current Medications Acetaminophen (Tylenol 325mg Tab) 650 mg PO Q6 PRN PRN Reason: Fever >100.4 F Last Admin: 07/14/18 20:12 Dose: 650 mg Cyclobenzaprine HCl (Flexeril) 5 mg PO Q8H [facility] Enoxaparin Sodium (Lovenox) 40 mg SC DAILY [facility] Lactated Ringer's (Lactated Ringer's) 1,000 mls @ 120 mls/hr IV .Q8H20M [facility] Last Admin: 07/15/18 03:50 Dose: Not Given Meropenem 1 gm/ Sodium (Chloride) 100 mls @ 100 mls/hr IVPB Q8H [facility]; Protocol Last Admin: 07/15/18 03:58 Dose: 100 mls/hr Metronidazole (Flagyl) 500 mg in 100 mls @ 100 mls/hr IVPB Q8H [facility]; Protocol Last Admin: 07/15/18 05:04 Dose: 100 mls/hr Ketorolac Tromethamine (Toradol) 30 mg IVP Q6 [facility] Stop: 07/17/18 23:00 Lidocaine (Lidoderm) 1 ea TD DAILY [facility] Ondansetron HCl (Zofran Inj) 4 mg IVP Q4 PRN PRN Reason: Nausea/Vomiting Last Admin: 07/13/18 07:24 Dose: 4 mg Oxycodone HCl (Oxycontin Extended Release Tab) 10 mg PO Q12 [facility] Stop: 07/18/18 10:01 Pantoprazole Sodium (Protonix Inj) 40 mg IVP DAILY [facility] Last Admin: 07/14/18 10:10 Dose: 40 mg Pneumococcal Polyvalent Vaccine (Pneumovax 23 Vaccine) 0.5 ml IM .ONCE ONE Stop: 07/16/18 10:01 Senna/Docusate Sodium (Senokot S 50 Mg-8.6 Mg) 1 tab PO DAILY [facility] Last Admin: 07/14/18 09:11 Dose: Not Given - Labs Labs: 07/14/18 06:34 07/14/18 06:34 PT 16.3 SECONDS (9.7-12.2) H 07/14/18 06:34 INR 1.5 07/14/18 06:34 APTT 32.0 SECONDS (21-34) 07/14/18 06:34 - Constitutional Appears: Non-toxic, No Acute Distress - Head Exam Head Exam: ATRAUMATIC, NORMAL INSPECTION, NORMOCEPHALIC - Eye Exam Eye Exam: EOMI, Normal appearance - ENT Exam ENT Exam: Mucous Membranes Moist, Normal Exam - Neck Exam Neck Exam: Full ROM, Normal Inspection - Respiratory Exam Respiratory Exam: NORMAL BREATHING PATTERN - Cardiovascular Exam Cardiovascular Exam: REGULAR RHYTHM, +S1, +S2 - GI/Abdominal Exam GI & Abdominal Exam: Tenderness (over surgical sites x 6. Dress[address]- clean/dry/intact. Drain with serosanguinous output). absent: Distended (obese), Firm, Guarding, Rebound - Extremities Exam Extremities Exam: Normal Inspection - Neurological Exam Neurological Exam: Alert, Awake, CN II-XII Intact, Oriented x3 - Psychiatric Exam Psychiatric exam: Normal Affect, Normal Mood - Skin Skin Exam: Dry, Intact, Normal Color, Warm Assessment and Plan - Assessment and Plan (Free Text) Assessment: 33M POD#1 s/p robotic cholecystectomy, lysis of adhesions, liver biopsy, and liver abscess drainage Plan: Abx as per ID Cont IVF for now Advance to fulls, then regular diet for lunch Pain control Abdominal binder OOBTC PT Activity as tolerated Encourage IS use Lovenox for DVT ppx DW Dr. Inessa Laguna, PGY-2 <Vishal Wylie B - Last Filed: 07/17/18 22:50> Objective - Vital Signs/Intake and Output Vital Signs (last 24 hours): Temp Pulse Resp BP Pulse Ox 99.8 F H 71 20 149/88 97 07/17/18 00:00 07/17/18 00:00 07/17/18 00:00 07/17/18 00:00 07/17/18 00:00 - Labs Labs: 07/17/18 06:19 07/17/18 06:19 PT 16.3 SECONDS (9.7-12.2) H 07/14/18 06:34 INR 1.5 07/14/18 06:34 APTT 32.0 SECONDS (21-34) 07/14/18 06:34 Attending/Attestation - Attestation I have personally seen and examined this patient.: Yes I have fully participated in the care of the patient.: Yes I have reviewed all pertinent clinical information, including history, physical exam and plan: Yes Notes (Text): Pt was seen and examined at bedside Agree with above note and assessment Pt is improving clinically ID consult for liver abscess OOB to walk Reg diet DVT prophylaxis Plan d.w pt in detail
--- NOTE | 2018-07-15 07:57 | CP.PCM.DIS ---
Provider - Provider Date of Admission: 07/12/18 16:53 Attending physician: Samy Puga DO Consults: 07/12/18 16:54 General Surgery Consult Routine Comment: Consulting Provider: Vishal Wylie Consulting Physician: Vishal Wylie Reason for Consult: acute cholelithiasis 07/14/18 19:22 Infectious Disease Consult Routine Comment: Consulting Provider: Feroz Johnston Consulting Physician: Feroz Johnston Reason for Consult: Liver Abscess. Acute on chronic cholecystitis Time Spent in preparation of Discharge (in minutes): 40 Hospital Course - Lab Results Lab Results: Micro Results 07/14/18 18:46 Gallbladder Gram Stain - Final 07/12/18 12:15 Blood Blood Culture - Preliminary NO GROWTH AFTER 48 HOURS 07/12/18 14:01 Blood Blood Culture - Preliminary NO GROWTH AFTER 48 HOURS 07/12/18 12:20 Urine Random Urine Culture - Final No Growth (<1,000 CFU/ML) Most Recent Lab Values WBC 11.8 K/uL (4.8-10.8) H 07/14/18 06:34 RBC 4.33 Mil/uL (4.40-5.90) L 07/14/18 06:34 Hgb 13.1 g/dL (12.0-18.0) 07/14/18 06:34 Hct 38.0 % (35.0-51.0) 07/14/18 06:34 MCV 87.7 fL (80.0-94.0) 07/14/18 06:34 MCH 30.4 pg (27.0-31.0) 07/14/18 06:34 MCHC 34.6 g/dL (33.0-37.0) 07/14/18 06:34 RDW 12.6 % (11.5-14.5) 07/14/18 06:34 Plt Count 192 K/uL (130-400) 07/14/18 06:34 MPV 8.5 fL (7.2-11.7) 07/14/18 06:34 Neut % (Auto) 80.5 % (50.0-75.0) H 07/14/18 06:34 Lymph % (Auto) 10.4 % (20.0-40.0) L 07/14/18 06:34 Lander % (Auto) 8.1 % (0.0-10.0) 07/14/18 06:34 Eos % (Auto) 0.8 % (0.0-4.0) 07/14/18 06:34 Baso % (Auto) 0.2 % (0.0-2.0) 07/14/18 06:34 Neut # (Auto) 9.5 K/uL (1.8-7.0) H 07/14/18 06:34 Lymph # (Auto) 1.2 K/uL (1.0-4.3) 07/14/18 06:34 Lander # (Auto) 0.9 K/uL (0.0-0.8) H 07/14/18 06:34 Eos # (Auto) 0.1 K/uL (0.0-0.7) 07/14/18 06:34 Baso # (Auto) 0.0 K/uL (0.0-0.2) 07/14/18 06:34 Neutrophils % (Manual) 80 % (50-75) H 07/13/18 07:13 Band Neutrophils % 5 % (0-2) H 07/13/18 07:13 Lymphocytes % (Manual) 5 % (20-40) L 07/13/18 07:13 Monocytes % (Manual) 10 % (0-10) 07/13/18 07:13 Platelet Estimate Normal (NORMAL) 07/13/18 07:13 RBC Morphology Normal 07/13/18 07:13 PT 16.3 SECONDS (9.7-12.2) H 07/14/18 06:34 INR 1.5 07/14/18 06:34 APTT 32.0 SECONDS (21-34) 07/14/18 06:34 pO2 21 mm/Hg (30-55) L 07/12/18 12:22 VBG pH 7.35 (7.32-7.43) 07/12/18 12:22 VBG pCO2 60 mmHg (40-60) 07/12/18 12:22 VBG HCO3 27.5 mmol/L 07/12/18 12:22 VBG Total CO2 34.9 mmol/L (22-28) H 07/12/18 12:22 VBG O2 Sat (Calc) 37.7 % (40-65) L 07/12/18 12:22 VBG Base Excess 5.6 mmol/L (0.0-2.0) H 07/12/18 12:22 VBG Potassium 3.9 mmol/L (3.6-5.2) 07/12/18 12:22 Sodium 131.0 mmol/l (132-148) L 07/12/18 12:22 Chloride 96.0 mmol/L (98-107) L 07/12/18 12:22 Glucose 121 mg/dl (75-110) H 07/12/18 12:22 Lactate 1.9 mmol/L (0.7-2.1) 07/12/18 12:22 Sodium 141 mmol/L (132-148) 07/14/18 06:34 Potassium 3.4 mmol/L (3.6-5.2) L 07/14/18 06:34 Chloride 103 mmol/L (98-107) 07/14/18 06:34 Carbon Dioxide 28 mmol/L (22-30) 07/14/18 06:34 Anion Gap 13 (10-20) 07/14/18 06:34 BUN 8 mg/dL (9-20) L 07/14/18 06:34 Creatinine 0.9 mg/dL (0.8-1.5) 07/14/18 06:34 Est GFR ( Amer) > 60 07/14/18 06:34 Est GFR (Non-Af Amer) > 60 07/14/18 06:34 Random Glucose 120 mg/dL (75-110) H 07/14/18 06:34 Hemoglobin A1c 5.4 % (4.2-6.5) 07/12/18 19:57 Calcium 8.4 mg/dl (8.6-10.4) L 07/14/18 06:34 Phosphorus 2.2 mg/dL (2.5-4.5) L 07/14/18 06:34 Magnesium 2.0 mg/dL (1.6-2.3) 07/14/18 06:34 Total Bilirubin 1.5 mg/dL (0.2-1.3) H 07/14/18 06:34 AST 29 U/L (17-59) 07/14/18 06:34 ALT 47 U/L (21-72) 07/14/18 06:34 Alkaline Phosphatase 97 U/L (38-126) 07/14/18 06:34 Total Protein 6.2 g/dL (6.3-8.3) L 07/14/18 06:34 Albumin 3.3 g/dL (3.5-5.0) L 07/14/18 06:34 Globulin 2.9 gm/dL (2.2-3.9) 07/14/18 06:34 Albumin/Globulin Ratio 1.1 (1.0-2.1) 07/14/18 06:34 Lipase 47 U/L (23-300) 07/12/18 19:57 Procalcitonin 1.68 NG/ML (0.19-0.49) H 07/12/18 19:57 Venous Blood Potassium 3.9 mmol/L (3.6-5.2) 07/12/18 12:22 Urine Color Yellow (YELLOW) 07/12/18 12:20 Urine Clarity Clear (Clear) 07/12/18 12:20 Urine pH 7.0 (5.0-8.0) 07/12/18 12:20 Ur Specific [place]erson 1.013 (1.003-1.030) 07/12/18 12:20 Urine Protein Negative mg/dL (NEGATIVE) 07/12/18 12:20 Urine Glucose (UA) Normal mg/dL (Normal) 07/12/18 12:20 Urine Ketones Negative mg/dL (NEGATIVE) 07/12/18 12:20 Urine Blood 1+ (NEGATIVE) H 07/12/18 12:20 Urine Nitrate Negative (NEGATIVE) 07/12/18 12:20 Urine Bilirubin Negative (NEGATIVE) 07/12/18 12:20 Urine Urobilinogen 4.0 mg/dL (0.2-1.0) 07/12/18 12:20 Ur Leukocyte Esterase Neg Mariano/uL (Negative) 07/12/18 12:20 Urine WBC (Auto) 1 /hpf (0-5) 07/12/18 12:20 Urine RBC (Auto) 1 /hpf (0-3) 07/12/18 12:20 Ur Squamous Epith Cells < 1 /hpf (0-5) 07/12/18 12:20 Urine Opiates Screen Positive (NEGATIVE) H 07/12/18 12:20 Urine Methadone Screen Negative (NEGATIVE) 07/12/18 12:20 Ur Barbiturates Screen Negative (NEGATIVE) 07/12/18 12:20 Ur Phencyclidine Scrn Negative (NEGATIVE) 07/12/18 12:20 Ur Amphetamines Screen Negative (NEGATIVE) 07/12/18 12:20 U Benzodiazepines Scrn Positive (NEGATIVE) 07/12/18 12:20 U Oth Cocaine Metabols Negative (NEGATIVE) 07/12/18 12:20 U Cannabinoids Screen Negative (NEGATIVE) 07/12/18 12:20 Blood Type A POSITIVE 07/13/18 07:13 Antibody Screen Negative 07/13/18 07:13 Discharge Exam - Head Exam Head Exam: ATRAUMATIC, NORMAL INSPECTION, NORMOCEPHALIC Discharge Plan - Follow Up Plan Condition: STABLE Disposition: HOME/ ROUTINE
--- NOTE | 2018-07-15 07:57 | CP.PCM.PN ---
<Israel Meza - Last Filed: 07/15/18 15:18> Subjective - Date & Time of Evaluation Date of Evaluation: 07/15/18 Time of Evaluation: 07:57 - Subjective Subjective: PGY-1 Medicine Progress Note for Dr. Puga Patient seen and examined sitting by bedside this AM POD #1 s/p robotic cholecystectomy with liver abscess drainage. Pain better under control after meds were readjusted by surgical team. Made aware of need for IV antibiotics given findings. Will f/u culture results. Objective - Vital Signs/Intake and Output Vital Signs (last 24 hours): Temp Pulse Resp BP Pulse Ox 99.1 F 97 H 20 118/67 97 07/15/18 00:00 07/15/18 00:00 07/15/18 00:00 07/15/18 00:00 07/15/18 00:00 Intake and Output: 07/15/18 07/15/18 06:59 18:59 Intake Total 200 1400 Output Total 30 50 Balance 170 1350 - Medications Medications: Current Medications Acetaminophen (Tylenol 325mg Tab) 650 mg PO Q6 PRN PRN Reason: Fever >100.4 F Last Admin: 07/14/18 20:12 Dose: 650 mg Cyclobenzaprine HCl (Flexeril) 5 mg PO Q8H [facility] Enoxaparin Sodium (Lovenox) 40 mg SC DAILY [facility] Lactated Ringer's (Lactated Ringer's) 1,000 mls @ 120 mls/hr IV .Q8H20M [facility] Last Admin: 07/15/18 03:50 Dose: Not Given Meropenem 1 gm/ Sodium (Chloride) 100 mls @ 100 mls/hr IVPB Q8H [facility]; Protocol Last Admin: 07/15/18 03:58 Dose: 100 mls/hr Metronidazole (Flagyl) 500 mg in 100 mls @ 100 mls/hr IVPB Q8H [facility]; Protocol Last Admin: 07/15/18 05:04 Dose: 100 mls/hr Ketorolac Tromethamine (Toradol) 30 mg IVP Q6 [facility] Stop: 07/17/18 23:00 Lidocaine (Lidoderm) 1 ea TD DAILY [facility] Ondansetron HCl (Zofran Inj) 4 mg IVP Q4 PRN PRN Reason: Nausea/Vomiting Last Admin: 07/13/18 07:24 Dose: 4 mg Oxycodone HCl (Oxycontin Extended Release Tab) 10 mg PO Q12 [facility] Stop: 07/18/18 10:01 Pantoprazole Sodium (Protonix Inj) 40 mg IVP DAILY [facility] Last Admin: 07/14/18 10:10 Dose: 40 mg Pneumococcal Polyvalent Vaccine (Pneumovax 23 Vaccine) 0.5 ml IM .ONCE ONE Stop: 07/16/18 10:01 Senna/Docusate Sodium (Senokot S 50 Mg-8.6 Mg) 1 tab PO DAILY [facility] Last Admin: 07/14/18 09:11 Dose: Not Given - Labs Labs: 07/14/18 06:34 07/14/18 06:34 PT 16.3 SECONDS (9.7-12.2) H 07/14/18 06:34 INR 1.5 07/14/18 06:34 APTT 32.0 SECONDS (21-34) 07/14/18 06:34 - Constitutional Appears: Non-toxic, No Acute Distress - Head Exam Head Exam: ATRAUMATIC, NORMAL INSPECTION, NORMOCEPHALIC - Eye Exam Eye Exam: EOMI, Normal appearance, PERRL Pupil Exam: NORMAL ACCOMODATION - ENT Exam ENT Exam: Mucous Membranes Moist, Normal Exam - Neck Exam Neck Exam: Full ROM, Normal Inspection - Respiratory Exam Respiratory Exam: Clear to Ausculation Bilateral, NORMAL BREATHING PATTERN - Cardiovascular Exam Cardiovascular Exam: REGULAR RHYTHM, +S1, +S2 - GI/Abdominal Exam GI & Abdominal Exam: Soft, Normal Bowel Sounds. absent: Distended, Firm, Guardi ng, Rigid, Tenderness, Rebound - Extremities Exam Extremities Exam: Full ROM, Normal Capillary Refill, Normal Inspection. absent: Calf Tenderness, Pedal Edema - Back Exam Back Exam: NORMAL INSPECTION - Neurological Exam Neurological Exam: Alert, Awake, Normal Gait, Oriented x3 - Skin Skin Exam: Dry, Intact, Normal Color, Warm Assessment and Plan - Assessment and Plan (Free Text) Assessment: 33 year old male POD#1 s/p robotic cholecystectomy, lysis of adhesions, liver biopsy, and liver abscess drainage Plan: Acute cholecystitis Liver abscess -Surgery recs (Dr. Wylie) appreciated -POD 1 s/p robotic cholecystectomy, lysis of adhesions, liver biopsy, and liver abscess drainage -OOB to chair -abdominal binder in place -PT/activity encouraged -IS use encouraged -Pain control per surgical recs -oxycodone 10 mg PO q12 -Lidoderm patch 1 TD daily -flexeril 5 mg PO q8h -toradol 30 mg IVP q6 -ID recs (Dr. Johnston) appreciated -Flagyl 500 mg IVPB q8 -Merropenem 1 gm IVPB q8 Sepsis, improved -low grade fever spike overnight -WBC downtrending -lactate wnl -urine culture: no growth -blood culture: no growth -LR @ 120 cc/hr -IV abx as per ID recs -zofran 4 mg IVP q4 prn for nausea -tylenol 650 mg PO q6 prn for fever Right Thigh Pain, resolved -CT R femur: Mild femorotibial compartment joint space narrowing at level of knee joint. Mild lateral subluxation of patella. Small suprapatellar joint effusion. -suspected referred pain Constipation -Senokot 1 tab PO daily PPx, Diet, Disposition -DVT ppx: scds, lovenox 40 mg SC daily -GI ppx: protonix 40 mg IVP daily -Diet: HHD Case discussed with Dr. Vivien Meza DO, PGY-1 <Samy Puga H - Last Filed: 07/15/18 15:57> Objective - Vital Signs/Intake and Output Vital Signs (last 24 hours): Temp Pulse Resp BP Pulse Ox 100.1 F H 87 20 121/76 97 07/15/18 07:55 07/15/18 07:55 07/15/18 07:55 07/15/18 07:55 07/15/18 07:55 Intake and Output: 07/15/18 07/15/18 06:59 18:59 Intake Total 200 1400 Output Total 30 50 Balance 170 1350 - Medications Medications: Current Medications Acetaminophen (Tylenol 325mg Tab) 650 mg PO Q6 PRN PRN Reason: Fever >100.4 F Last Admin: 07/14/18 20:12 Dose: 650 mg Cyclobenzaprine HCl (Flexeril) 5 mg PO Q8H [facility] Last Admin: 07/15/18 08:27 Dose: 5 mg Enoxaparin Sodium (Lovenox) 40 mg SC DAILY [facility] Last Admin: 07/15/18 09:38 Dose: 40 mg Lactated Ringer's (Lactated Ringer's) 1,000 mls @ 120 mls/hr IV .Q8H20M [facility] Last Admin: 07/15/18 13:16 Dose: Not Given Meropenem 1 gm/ Sodium (Chloride) 100 mls @ 100 mls/hr IVPB Q8H [facility]; Protocol Last Admin: 07/15/18 11:30 Dose: 100 mls/hr Metronidazole (Flagyl) 500 mg in 100 mls @ 100 mls/hr IVPB Q8H [facility]; Protocol Last Admin: 07/15/18 13:15 Dose: 100 mls/hr Ketorolac Tromethamine (Toradol) 30 mg IVP Q6 [facility] Stop: 07/17/18 23:00 Last Admin: 07/15/18 11:25 Dose: 30 mg Lidocaine (Lidoderm) 1 ea TD DAILY [facility] Last Admin: 07/15/18 11:31 Dose: 1 ea Ondansetron HCl (Zofran Inj) 4 mg IVP Q4 PRN PRN Reason: Nausea/Vomiting Last Admin: 07/15/18 08:29 Dose: 4 mg Oxycodone HCl (Oxycontin Extended Release Tab) 10 mg PO Q12 [facility] Stop: 07/18/18 10:01 Last Admin: 07/15/18 09:37 Dose: 10 mg Pantoprazole Sodium (Protonix Inj) 40 mg IVP DAILY [facility] Last Admin: 07/15/18 11:29 Dose: Not Given Pneumococcal Polyvalent Vaccine (Pneumovax 23 Vaccine) 0.5 ml IM .ONCE ONE Stop: 07/16/18 10:01 Senna/Docusate Sodium (Senokot S 50 Mg-8.6 Mg) 1 tab PO DAILY [facility] Last Admin: 07/15/18 09:37 Dose: 1 tab - Labs Labs: 07/14/18 06:34 07/14/18 06:34 PT 16.3 SECONDS (9.7-12.2) H 07/14/18 06:34 INR 1.5 07/14/18 06:34 APTT 32.0 SECONDS (21-34) 07/14/18 06:34 Attending/Attestation - Attestation I have personally seen and examined this patient.: Yes I have fully participated in the care of the patient.: Yes I have reviewed all pertinent clinical information, including history, physical exam and plan: Yes Notes (Text): 07/15/18 15:53 Medical attending: Patient was seen and examined by me with the medical residents The patient was not in any acute distress when I came and saw him. His family member was again at bedside as well The patient has a drain in place with serosangenous color fluid. Per discussion with staff he had a lot of findings of necrosis and abbcess and will require IV abx for some time. We encouraged incentive spirometry, we encouraged OOB to chair, we encouraged ambulating as much as possible. He reports the pain is controlled at this time Samy Puga
[2018-07-15] MEDS ORDERED: HYDROmorphone 0.5 mg/0.5 ml ISec IVP STA (07:58)
[2018-07-15] MEDS: Docusate-Senna 50 mg-8.6 mg Tab PO SCH (09:37)
[2018-07-15] MEDS: oxyCODONE 10 mg ER Tab (oxyCONTIN) PO SCH ×2 (09:37→22:14)
[2018-07-15] MEDS: Enoxaparin 40 mg Syringe SC SCH (09:38)
[2018-07-15] MEDS: Lidocaine 5% Patch TD SCH (11:31)
--- NOTE | 2018-07-15 18:47 | CP.PCM.PN ---
Subjective - Date & Time of Evaluation Date of Evaluation: 07/15/18 Time of Evaluation: 08:00 - Subjective Subjective: seen on rounds ROS completed events noted labs and xrays reviewed orders signed Objective - Vital Signs/Intake and Output Vital Signs (last 24 hours): Temp Pulse Resp BP Pulse Ox 98.7 F 85 20 97/64 L 96 07/15/18 16:00 07/15/18 16:00 07/15/18 16:00 07/15/18 16:00 07/15/18 16:00 Intake and Output: 07/15/18 07/15/18 06:59 18:59 Intake Total 200 1800 Output Total 30 90 Balance 170 1710 - Medications Medications: Current Medications Acetaminophen (Tylenol 325mg Tab) 650 mg PO Q6 PRN PRN Reason: Fever >100.4 F Last Admin: 07/14/18 20:12 Dose: 650 mg Cyclobenzaprine HCl (Flexeril) 5 mg PO Q8H [facility] Last Admin: 07/15/18 17:34 Dose: 5 mg Enoxaparin Sodium (Lovenox) 40 mg SC DAILY [facility] Last Admin: 07/15/18 09:38 Dose: 40 mg Lactated Ringer's (Lactated Ringer's) 1,000 mls @ 120 mls/hr IV .Q8H20M [facility] Last Admin: 07/15/18 17:06 Dose: 120 mls/hr Meropenem 1 gm/ Sodium (Chloride) 100 mls @ 100 mls/hr IVPB Q8H [facility]; Protocol Last Admin: 07/15/18 11:30 Dose: 100 mls/hr Metronidazole (Flagyl) 500 mg in 100 mls @ 100 mls/hr IVPB Q8H [facility]; Protocol Last Admin: 07/15/18 13:15 Dose: 100 mls/hr Ketorolac Tromethamine (Toradol) 30 mg IVP Q6 [facility] Stop: 07/17/18 23:00 Last Admin: 07/15/18 18:24 Dose: 30 mg Lidocaine (Lidoderm) 1 ea TD DAILY [facility] Last Admin: 07/15/18 11:31 Dose: 1 ea Ondansetron HCl (Zofran Inj) 4 mg IVP Q4 PRN PRN Reason: Nausea/Vomiting Last Admin: 07/15/18 08:29 Dose: 4 mg Oxycodone HCl (Oxycontin Extended Release Tab) 10 mg PO Q12 [facility] Stop: 07/18/18 10:01 Last Admin: 07/15/18 09:37 Dose: 10 mg Pantoprazole Sodium (Protonix Inj) 40 mg IVP DAILY [facility] Last Admin: 07/15/18 11:29 Dose: Not Given Pneumococcal Polyvalent Vaccine (Pneumovax 23 Vaccine) 0.5 ml IM .ONCE ONE Stop: 07/16/18 10:01 Senna/Docusate Sodium (Senokot S 50 Mg-8.6 Mg) 1 tab PO DAILY [facility] Last Admin: 07/15/18 09:37 Dose: 1 tab - Labs Labs: 07/14/18 06:34 07/14/18 06:34 PT 16.3 SECONDS (9.7-12.2) H 07/14/18 06:34 INR 1.5 07/14/18 06:34 APTT 32.0 SECONDS (21-34) 07/14/18 06:34 - Constitutional Appears: Non-toxic, Chronically Ill - Head Exam Head Exam: ATRAUMATIC, NORMAL INSPECTION, NORMOCEPHALIC - Eye Exam Eye Exam: EOMI, Normal appearance, PERRL Pupil Exam: NORMAL ACCOMODATION, PERRL - ENT Exam ENT Exam: Mucous Membranes Moist, Normal Exam - Neck Exam Neck Exam: Full ROM, Normal Inspection. absent: Lymphadenopathy - Respiratory Exam Respiratory Exam: Clear to Ausculation Bilateral, NORMAL BREATHING PATTERN - Cardiovascular Exam Cardiovascular Exam: REGULAR RHYTHM, +S1, +S2. absent: Murmur - GI/Abdominal Exam GI & Abdominal Exam: Distended, Guarding, Soft, Tenderness. absent: Normal Bowel Sounds Additional comments: drain in place - Rectal Exam Rectal Exam: Deferred - Extremities Exam Extremities Exam: Full ROM, Normal Capillary Refill, Normal Inspection. absent: Joint Swelling, Pedal Edema - Back Exam Back Exam: NORMAL INSPECTION - Neurological Exam Neurological Exam: Alert, Awake, CN II-XII Intact, Normal Gait, Oriented x3 - Psychiatric Exam Psychiatric exam: Normal Affect, Normal Mood - Skin Skin Exam: Dry, Intact, Normal Color, Warm Assessment and Plan (1) Pyogenic hepatic abscess Status: Acute (2) Acute cholecystitis Status: Acute - Assessment and Plan (Free Text) Assessment: s/p cholecystectomy doing well IV rx in progress Possibli IV Invanz 1 g daily for 3 weeks
[2018-07-16] MEDS: Lactated Ringer's 1,000 ML IV SCH (04:00)
[2018-07-16] MEDS: Meropenem 1 GM in Sodium Chloride 0.9% 100 ML IVPB SCH ×3 (04:15→19:42)
[2018-07-16] MEDS: metroNIDAZOLE IV 500 mg/100 ml 500 MG/100 ML BAG IVPB SCH ×3 (05:30→20:51)
--- NOTE | 2018-07-16 07:48 | CP.PCM.PN ---
<Israel Meza - Last Filed: 07/16/18 12:59> Subjective - Date & Time of Evaluation Date of Evaluation: 07/16/18 Time of Evaluation: 07:48 - Subjective Subjective: PGY-1 Medicine Progress Note for Dr. Puga Patient seen and examined this AM, POD #2 s/p robotic cholecystectomy, lysis of adhesions, liver biopsy, and liver abscess drainage. No overnight events reported. He is tolerating PO diet well, pain adequately under control. Observed using IS and walking around hallway, ambulating adequately. Awaiting finalized cultures. Objective - Vital Signs/Intake and Output Vital Signs (last 24 hours): Temp Pulse Resp BP Pulse Ox 100.1 F H 84 20 124/76 95 07/16/18 06:00 07/16/18 00:00 07/16/18 00:00 07/16/18 00:00 07/16/18 00:00 Intake and Output: 07/16/18 07/16/18 06:59 18:59 Intake Total 2670 Output Total 90 Balance 2580 - Medications Medications: Current Medications Acetaminophen (Tylenol 325mg Tab) 650 mg PO Q6 PRN PRN Reason: Fever >100.4 F Last Admin: 07/14/18 20:12 Dose: 650 mg Cyclobenzaprine HCl (Flexeril) 5 mg PO Q8H ON LICENSE OF [facility] Last Admin: 07/16/18 07:15 Dose: 5 mg Enoxaparin Sodium (Lovenox) 40 mg SC DAILY ON [facility] OF [facility] Last Admin: 07/15/18 09:38 Dose: 40 mg Lactated Ringer's (Lactated Ringer's) 1,000 mls @ 120 mls/hr IV .Q8H20M [facility] Last Admin: 07/16/18 04:00 Dose: 120 mls/hr Meropenem 1 gm/ Sodium (Chloride) 100 mls @ 100 mls/hr IVPB Q8H ON LICENSE OF [facility]; Protocol Last Admin: 07/16/18 04:15 Dose: 100 mls/hr Metronidazole (Flagyl) 500 mg in 100 mls @ 100 mls/hr IVPB Q8H [facility]; Protocol Last Admin: 07/16/18 05:30 Dose: 100 mls/hr Ketorolac Tromethamine (Toradol) 30 mg IVP Q6 [facility] Stop: 07/17/18 23:00 Last Admin: 07/16/18 05:30 Dose: 30 mg Lidocaine (Lidoderm) 1 ea TD DAILY ON [facility] OF [facility] Last Admin: 07/15/18 11:31 Dose: 1 ea Ondansetron HCl (Zofran Inj) 4 mg IVP Q4 PRN PRN Reason: Nausea/Vomiting Last Admin: 07/15/18 08:29 Dose: 4 mg Oxycodone HCl (Oxycontin Extended Release Tab) 10 mg PO Q12 ON [facility] OF [facility] Stop: 07/18/18 10:01 Last Admin: 07/15/18 22:14 Dose: 10 mg Pantoprazole Sodium (Protonix Inj) 40 mg IVP DAILY ON [facility] OF [facility] Last Admin: 07/15/18 11:29 Dose: Not Given Pneumococcal Polyvalent Vaccine (Pneumovax 23 Vaccine) 0.5 ml IM .ONCE ONE Stop: 07/16/18 10:01 Senna/Docusate Sodium (Senokot S 50 Mg-8.6 Mg) 1 tab PO DAILY ON LICENSE OF [facility] Last Admin: 07/15/18 09:37 Dose: 1 tab - Labs Labs: 07/14/18 06:34 07/14/18 06:34 PT 16.3 SECONDS (9.7-12.2) H 07/14/18 06:34 INR 1.5 07/14/18 06:34 APTT 32.0 SECONDS (21-34) 07/14/18 06:34 - Constitutional Appears: Non-toxic, No Acute Distress - Head Exam Head Exam: ATRAUMATIC, NORMAL INSPECTION, NORMOCEPHALIC - Eye Exam Eye Exam: EOMI, Normal appearance, PERRL Pupil Exam: NORMAL ACCOMODATION - ENT Exam ENT Exam: Mucous Membranes Moist, Normal Exam - Neck Exam Neck Exam: Full ROM, Normal Inspection - Respiratory Exam Respiratory Exam: Clear to Ausculation Bilateral, NORMAL BREATHING PATTERN. absent: Accessory Muscle Use, Rales, Rhonchi, Wheezes, Respiratory Distress, Stridor - Cardiovascular Exam Cardiovascular Exam: REGULAR RHYTHM, +S1, +S2 - GI/Abdominal Exam GI & Abdominal Exam: Soft, Normal Bowel Sounds Additional comments: drain in place surgical sites with dressing clean dry and intact - Extremities Exam Extremities Exam: Full ROM, Normal Capillary Refill, Normal Inspection. absent: Calf Tenderness, Pedal Edema - Back Exam Back Exam: NORMAL INSPECTION. absent: CVA tenderness (L), CVA tenderness (R) - Neurological Exam Neurological Exam: Alert, Awake, Normal Gait, Oriented x3 - Skin Skin Exam: Dry, Intact, Normal Color, Warm Assessment and Plan - Assessment and Plan (Free Text) Assessment: 33 year old male POD#2 s/p robotic cholecystectomy, lysis of adhesions, liver biopsy, and liver abscess drainage Plan: Acute cholecystitis Liver abscess -Surgery recs (Dr. Wylie) appreciated -POD #2 s/p robotic cholecystectomy, lysis of adhesions, liver biopsy, and liver abscess drainage -OOB to chair -abdominal binder in place -PT/activity encouraged -IS use encouraged -Pain control per surgical recs -oxycodone 10 mg PO q12 -Lidoderm patch 1 TD daily -flexeril 5 mg PO q8h -toradol 30 mg IVP q6 -ID recs (Dr. Johnston) appreciated -tissue cultures prelim: GNR -f/u finalized cultures -Flagyl 500 mg IVPB q8 -Merropenem 1 gm IVPB q8 Sepsis, resolved -WBC normalized -lactate wnl -urine culture: no growth -blood culture: no growth -fluids d/c'd -IV abx as per ID recs -zofran 4 mg IVP q4 prn for nausea -tylenol 650 mg PO q6 prn for fever Right Thigh Pain, resolved -CT R femur: Mild femorotibial compartment joint space narrowing at level of knee joint. Mild lateral subluxation of patella. Small suprapatellar joint effusion. -suspected referred pain Constipation -Senokot 1 tab PO daily PPx, Diet, Disposition -DVT ppx: scds, lovenox 40 mg SC daily -GI ppx: protonix 40 mg IVP daily -Diet: HHD Case discussed with Dr. Vivien Meza DO, PGY-1 <Samy Puga - Last Filed: 07/16/18 15:03> Objective - Vital Signs/Intake and Output Vital Signs (last 24 hours): Temp Pulse Resp BP Pulse Ox 98.1 F 93 H 20 131/85 96 07/16/18 07:00 07/16/18 07:00 07/16/18 07:00 07/16/18 07:00 07/16/18 07:00 Intake and Output: 07/16/18 07/16/18 06:59 18:59 Intake Total 2670 Output Total 90 Balance 2580 - Medications Medications: Current Medications Acetaminophen (Tylenol 325mg Tab) 650 mg PO Q6 PRN PRN Reason: Fever >100.4 F Last Admin: 07/14/18 20:12 Dose: 650 mg Cyclobenzaprine HCl (Flexeril) 5 mg PO Q8H ON [facility] OF [facility] Last Admin: 07/16/18 07:15 Dose: 5 mg Enoxaparin Sodium (Lovenox) 40 mg SC DAILY ON [facility] OF [facility] Last Admin: 07/16/18 09:32 Dose: 40 mg Meropenem 1 gm/ Sodium (Chloride) 100 mls @ 100 mls/hr IVPB Q8H ON LICENSE OF [facility]; Protocol Last Admin: 07/16/18 12:03 Dose: 100 mls/hr Metronidazole (Flagyl) 500 mg in 100 mls @ 100 mls/hr IVPB Q8H [facility]; Protocol Last Admin: 07/16/18 13:09 Dose: 100 mls/hr Ketorolac Tromethamine (Toradol) 30 mg IVP Q6 ON [facility] OF [facility] Stop: 07/17/18 23:00 Last Admin: 07/16/18 12:03 Dose: 30 mg Lidocaine (Lidoderm) 1 ea TD DAILY ON [facility] Last Admin: 07/16/18 09:34 Dose: 1 ea Ondansetron HCl (Zofran Inj) 4 mg IVP Q4 PRN PRN Reason: Nausea/Vomiting Last Admin: 07/15/18 08:29 Dose: 4 mg Oxycodone HCl (Oxycontin Extended Release Tab) 10 mg PO Q12 PRN PRN Reason: Pain, moderate (4-7) Stop: 07/18/18 10:01 Pantoprazole Sodium (Protonix Inj) 40 mg IVP DAILY ON [facility] OF [facility] Last Admin: 07/16/18 09:33 Dose: 40 mg Senna/Docusate Sodium (Senokot S 50 Mg-8.6 Mg) 1 tab PO DAILY ON [facility] OF [facility] Last Admin: 07/16/18 09:32 Dose: 1 tab - Labs Labs: 07/16/18 08:21 07/16/18 08:21 PT 16.3 SECONDS (9.7-12.2) H 07/14/18 06:34 INR 1.5 07/14/18 06:34 APTT 32.0 SECONDS (21-34) 07/14/18 06:34 Attending/Attestation - Attestation I have personally seen and examined this patient.: Yes I have fully participated in the care of the patient.: Yes I have reviewed all pertinent clinical information, including history, physical exam and plan: Yes Notes (Text): 07/16/18 15:01 Medical attending: Patient was seen and examined by me. Agree with the above note by the resident The patient was not in any acute distress when I came and saw with the biomedical equipment technician The patient was walking around slolwy on his own in the [place] There was a Tmax of 100.1 and WBC decreasing. He remains on IV abx at this time. There is a preliminary gram negative growth seen Samy Puga
[2018-07-16 08:31] LABS: BASO % 0.4 % (0.0-2.0); EOS # 0.1 K/uL (0.0-0.7); EOS % 1.4 % (0.0-4.0); HEMOGLOBIN 12.9 g/dL (12.0-18.0); LYMPH # 1.5 K/uL (1.0-4.3); LYMPH % 15.8 % (20.0-40.0); MEAN CELL VOLUME 89.1 fL (80.0-94.0); MEAN CORPUSCULAR HEMOGLOBIN 30.4 pg (27.0-31.0); MEAN CORPUSCULAR HGB CONC 34.1 g/dL (33.0-37.0); MEAN PLATELET VOLUME 7.9 fL (7.2-11.7); MONO # 0.8 K/uL (0.0-0.8); MONO % 8.9 % (0.0-10.0); NEUT % 73.5 % (50.0-75.0); RBC 4.26 Mil/uL (4.40-5.90); RED CELL DISTRIBUTION WIDTH 12.7 % (11.5-14.5); WHITE BLOOD COUNT 9.6 K/uL (4.8-10.8)
[2018-07-16 08:45] LABS: ALB/GLOB RATIO 1.1 (1.0-2.1); ALBUMIN 3.4 g/dL (3.5-5.0); ALT/SGPT 50 U/L (21-72); AST/SGOT 31 U/L (17-59); BLOOD UREA NITROGEN 8 mg/dL (9-20); CALCIUM 8.3 mg/dl (8.6-10.4); GFR NON-AFRICAN AMERICAN > 60
[2018-07-16] MEDS: Docusate-Senna 50 mg-8.6 mg Tab PO SCH (09:32)
[2018-07-16] MEDS: oxyCODONE 10 mg ER Tab (oxyCONTIN) PO SCH (09:32)
[2018-07-16] MEDS: Enoxaparin 40 mg Syringe SC SCH (09:32)
[2018-07-16] MEDS: Lidocaine 5% Patch TD SCH (09:34)
--- NOTE | 2018-07-16 09:55 | CP.PCM.PN ---
<Tal Gonzalez - Last Filed: 07/16/18 10:37> Subjective - Date & Time of Evaluation Date of Evaluation: 07/16/18 Time of Evaluation: 07:11 - Subjective Subjective: General Surgery Note for Dr. Wylie Patient seen and examined at bedside. No acute event overnight. Patient states that pain has improved tremendously. Denies fever/chils or nausea/vomiting. Patient admits to flatus but no bm. He is tolerating regular diet. He has been ambulating, OOB, and using IS. Objective - Vital Signs/Intake and Output Vital Signs (last 24 hours): Temp Pulse Resp BP Pulse Ox 98.1 F 93 H 20 131/85 96 07/16/18 07:00 07/16/18 07:00 07/16/18 07:00 07/16/18 07:00 07/16/18 07:00 Intake and Output: 07/16/18 07/16/18 06:59 18:59 Intake Total 2670 Output Total 90 Balance 2580 - Medications Medications: Current Medications Acetaminophen (Tylenol 325mg Tab) 650 mg PO Q6 PRN PRN Reason: Fever >100.4 F Last Admin: 07/14/18 20:12 Dose: 650 mg Cyclobenzaprine HCl (Flexeril) 5 mg PO Q8H [facility] Last Admin: 07/16/18 07:15 Dose: 5 mg Enoxaparin Sodium (Lovenox) 40 mg SC DAILY [facility] Last Admin: 07/16/18 09:32 Dose: 40 mg Lactated Ringer's (Lactated Ringer's) 1,000 mls @ 120 mls/hr IV .Q8H20M [facility] Last Admin: 07/16/18 04:00 Dose: 120 mls/hr Meropenem 1 gm/ Sodium (Chloride) 100 mls @ 100 mls/hr IVPB Q8H [facility]; Protocol Last Admin: 07/16/18 04:15 Dose: 100 mls/hr Metronidazole (Flagyl) 500 mg in 100 mls @ 100 mls/hr IVPB Q8H [facility]; Protocol Last Admin: 07/16/18 05:30 Dose: 100 mls/hr Ketorolac Tromethamine (Toradol) 30 mg IVP Q6 [facility] Stop: 07/17/18 23:00 Last Admin: 07/16/18 05:30 Dose: 30 mg Lidocaine (Lidoderm) 1 ea TD DAILY [facility] Last Admin: 07/16/18 09:34 Dose: 1 ea Ondansetron HCl (Zofran Inj) 4 mg IVP Q4 PRN PRN Reason: Nausea/Vomiting Last Admin: 07/15/18 08:29 Dose: 4 mg Oxycodone HCl (Oxycontin Extended Release Tab) 10 mg PO Q12 [facility] Stop: 07/18/18 10:01 Last Admin: 07/16/18 09:32 Dose: 10 mg Pantoprazole Sodium (Protonix Inj) 40 mg IVP DAILY [facility] Last Admin: 07/16/18 09:33 Dose: 40 mg Pneumococcal Polyvalent Vaccine (Pneumovax 23 Vaccine) 0.5 ml IM .ONCE ONE Stop: 07/16/18 10:01 Last Admin: 07/16/18 09:33 Dose: 0.5 ml Senna/Docusate Sodium (Senokot S 50 Mg-8.6 Mg) 1 tab PO DAILY [facility] Last Admin: 07/16/18 09:32 Dose: 1 tab - Labs Labs: 07/16/18 08:21 07/16/18 08:21 PT 16.3 SECONDS (9.7-12.2) H 07/14/18 06:34 INR 1.5 07/14/18 06:34 APTT 32.0 SECONDS (21-34) 07/14/18 06:34 - Constitutional Appears: Non-toxic, No Acute Distress - Head Exam Head Exam: ATRAUMATIC, NORMOCEPHALIC - Eye Exam Eye Exam: EOMI, Normal appearance Pupil Exam: PERRL - ENT Exam ENT Exam: Mucous Membranes Moist - Respiratory Exam Respiratory Exam: NORMAL BREATHING PATTERN - Cardiovascular Exam Cardiovascular Exam: REGULAR RHYTHM - GI/Abdominal Exam GI & Abdominal Exam: Soft, Normal Bowel Sounds. absent: Distended, Firm, Guarding, Rigid, Tenderness, Rebound Additional comments: drain in place surgical sites with dressing clean dry and intact - Extremities Exam Extremities Exam: Normal Capillary Refill - Back Exam Back Exam: absent: CVA tenderness (L), CVA tenderness (R) - Neurological Exam Neurological Exam: Alert, Awake, CN II-XII Intact, Normal Gait, Oriented x3 - Psychiatric Exam Psychiatric exam: Normal Affect, Normal Mood - Skin Skin Exam: Dry, Intact, Normal Color, Warm Assessment and Plan - Assessment and Plan (Free Text) Assessment: 33M s/p robotic cholecystectomy, lysis of adhesions, liver biopsy, and liver abscess drainage POD#2 Plan: Regular diet Abx as per ID May DC IVF Pain control OOB/IS/Ambulation PT Lovenox for DVT ppx Discussed with Dr. Inessa Gonzalez PGY2 <Vishal Wylie B - Last Filed: 07/17/18 22:51> Objective - Vital Signs/Intake and Output Vital Signs (last 24 hours): Temp Pulse Resp BP Pulse Ox 99.8 F H 71 20 149/88 97 07/17/18 00:00 07/17/18 00:00 07/17/18 00:00 07/17/18 00:00 07/17/18 00:00 - Labs Labs: 07/17/18 06:19 07/17/18 06:19 PT 16.3 SECONDS (9.7-12.2) H 07/14/18 06:34 INR 1.5 07/14/18 06:34 APTT 32.0 SECONDS (21-34) 07/14/18 06:34 Attending/Attestation - Attestation I have personally seen and examined this patient.: Yes I have fully participated in the care of the patient.: Yes I have reviewed all pertinent clinical information, including history, physical exam and plan: Yes Notes (Text): Pt was seen and examined at bedside Agree with above note and assessment Awaiting culture ID consult appreciated DC plan Plan d.w pt in detail
[2018-07-16] MEDS ORDERED: Pneumococcal 23-Valent Vaccine IM ONE (10:00)
[2018-07-16] MEDS ORDERED: oxyCODONE 10 mg ER Tab (oxyCONTIN) PO PRN (10:39)
[2018-07-16] MEDS: Potassium Chloride 20 mEq ER Tab PO SCH ×2 (11:22→12:17)
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
--- NOTE | 2018-07-16 17:32 | CP.PCM.PN ---
Subjective - Date & Time of Evaluation Date of Evaluation: 07/16/18 Time of Evaluation: 08:00 - Subjective Subjective: seen on rounds ROS completed events noted labs and xrays reviewed orders signed Objective - Vital Signs/Intake and Output Vital Signs (last 24 hours): Temp Pulse Resp BP Pulse Ox 98.8 F 85 20 137/91 H 99 07/16/18 17:07 07/16/18 17:07 07/16/18 17:07 07/16/18 17:07 07/16/18 17:07 Intake and Output: 07/16/18 07/16/18 06:59 18:59 Intake Total 2670 1300 Output Total 90 50 Balance 2580 1250 - Medications Medications: Current Medications Acetaminophen (Tylenol 325mg Tab) 650 mg PO Q6 PRN PRN Reason: Fever >100.4 F Last Admin: 07/14/18 20:12 Dose: 650 mg Cyclobenzaprine HCl (Flexeril) 5 mg PO Q8H [facility] Last Admin: 07/16/18 17:11 Dose: 5 mg Enoxaparin Sodium (Lovenox) 40 mg SC DAILY [facility] Last Admin: 07/16/18 09:32 Dose: 40 mg Meropenem 1 gm/ Sodium (Chloride) 100 mls @ 100 mls/hr IVPB Q8H [facility]; Protocol Last Admin: 07/16/18 12:03 Dose: 100 mls/hr Metronidazole (Flagyl) 500 mg in 100 mls @ 100 mls/hr IVPB Q8H [facility]; Protocol Last Admin: 07/16/18 13:09 Dose: 100 mls/hr Ketorolac Tromethamine (Toradol) 30 mg IVP Q6 [facility] Stop: 07/17/18 23:00 Last Admin: 07/16/18 17:12 Dose: 30 mg Lidocaine (Lidoderm) 1 ea TD DAILY [facility] Last Admin: 07/16/18 09:34 Dose: 1 ea Ondansetron HCl (Zofran Inj) 4 mg IVP Q4 PRN PRN Reason: Nausea/Vomiting Last Admin: 07/15/18 08:29 Dose: 4 mg Oxycodone HCl (Oxycontin Extended Release Tab) 10 mg PO Q12 PRN PRN Reason: Pain, moderate (4-7) Stop: 07/18/18 10:01 Pantoprazole Sodium (Protonix Inj) 40 mg IVP DAILY [facility] Last Admin: 07/16/18 09:33 Dose: 40 mg Potassium Chloride (K-Dur 20 Meq Er Tab) 40 meq PO ONCE ONE Stop: 07/17/18 16:30 Senna/Docusate Sodium (Senokot S 50 Mg-8.6 Mg) 1 tab PO DAILY [facility] Last Admin: 07/16/18 09:32 Dose: 1 tab - Labs Labs: 07/16/18 08:21 07/16/18 08:21 PT 16.3 SECONDS (9.7-12.2) H 07/14/18 06:34 INR 1.5 07/14/18 06:34 APTT 32.0 SECONDS (21-34) 07/14/18 06:34 - Constitutional Appears: Non-toxic, No Acute Distress, Chronically Ill - Head Exam Head Exam: ATRAUMATIC, NORMAL INSPECTION, NORMOCEPHALIC - Eye Exam Eye Exam: EOMI, Normal appearance, PERRL Pupil Exam: NORMAL ACCOMODATION, PERRL - ENT Exam ENT Exam: Mucous Membranes Moist, Normal Exam - Neck Exam Neck Exam: Full ROM, Normal Inspection. absent: Lymphadenopathy - Respiratory Exam Respiratory Exam: Clear to Ausculation Bilateral, NORMAL BREATHING PATTERN - Cardiovascular Exam Cardiovascular Exam: REGULAR RHYTHM, +S1, +S2. absent: Murmur - GI/Abdominal Exam GI & Abdominal Exam: Distended, Soft, Tenderness, Normal Bowel Sounds Additional comments: Drain in place - Rectal Exam Rectal Exam: Deferred - Exam Exam: NORMAL INSPECTION - Extremities Exam Extremities Exam: Full ROM, Normal Capillary Refill, Normal Inspection. absent: Joint Swelling, Pedal Edema - Back Exam Back Exam: NORMAL INSPECTION - Neurological Exam Neurological Exam: Alert, Awake, CN II-XII Intact, Normal Gait, Oriented x3 - Psychiatric Exam Psychiatric exam: Normal Affect, Normal Mood - Skin Skin Exam: Dry, Intact, Normal Color, Warm Assessment and Plan (1) Acute cholecystitis Status: Acute (2) Pyogenic hepatic abscess Status: Acute - Assessment and Plan (Free Text) Assessment: s/p cholecystectomy / liver abscess wound growing gram neg rods antivcipate 3 week course rx - PO option cipro/ flagyl if possible -- await sensitivities
[2018-07-17 00:46] VITALS: BP 149/88; PULSE 71; TEMP 99.8; O2SAT 97
[2018-07-17] MEDS: Meropenem 1 GM in Sodium Chloride 0.9% 100 ML IVPB SCH ×2 (04:03→13:38)
[2018-07-17] MEDS: metroNIDAZOLE IV 500 mg/100 ml 500 MG/100 ML BAG IVPB SCH ×2 (05:08→13:12)
[2018-07-17 06:28] LABS: BASO % 0.3 % (0.0-2.0); EOS # 0.2 K/uL (0.0-0.7); EOS % 1.9 % (0.0-4.0); HEMOGLOBIN 13.1 g/dL (12.0-18.0); LYMPH # 1.7 K/uL (1.0-4.3); MEAN CELL VOLUME 89.3 fL (80.0-94.0); MEAN CORPUSCULAR HEMOGLOBIN 30.3 pg (27.0-31.0); MEAN CORPUSCULAR HGB CONC 33.9 g/dL (33.0-37.0); MEAN PLATELET VOLUME 7.5 fL (7.2-11.7); MONO # 0.7 K/uL (0.0-0.8); MONO % 7.3 % (0.0-10.0); NEUT % 72.5 % (50.0-75.0); RBC 4.33 Mil/uL (4.40-5.90); RED CELL DISTRIBUTION WIDTH 12.5 % (11.5-14.5); WHITE BLOOD COUNT 9.6 K/uL (4.8-10.8)
[2018-07-17 06:48] LABS: ALBUMIN 3.3 g/dL (3.5-5.0); ALT/SGPT 32 U/L (21-72); AST/SGOT 20 U/L (17-59); BLOOD UREA NITROGEN 7 mg/dL (9-20); CALCIUM 8.7 mg/dl (8.6-10.4); GFR NON-AFRICAN AMERICAN > 60
--- NOTE | 2018-07-17 07:50 | CP.PCM.PN ---
<Rajesh Ray M - Last Filed: 07/17/18 07:50> Objective - Vital Signs/Intake and Output Vital Signs (last 24 hours): Temp Pulse Resp BP Pulse Ox 99.8 F H 71 20 149/88 97 07/17/18 00:00 07/17/18 00:00 07/17/18 00:00 07/17/18 00:00 07/17/18 00:00 Intake and Output: 07/17/18 07/17/18 06:59 18:59 Intake Total 495 Output Total 40 Balance 455 - Medications Medications: Current Medications Acetaminophen (Tylenol 325mg Tab) 650 mg PO Q6 PRN PRN Reason: Fever >100.4 F Last Admin: 07/14/18 20:12 Dose: 650 mg Cyclobenzaprine HCl (Flexeril) 5 mg PO Q8H [facility] Last Admin: 07/17/18 07:39 Dose: 5 mg Enoxaparin Sodium (Lovenox) 40 mg SC DAILY [facility] Last Admin: 07/16/18 09:32 Dose: 40 mg Meropenem 1 gm/ Sodium (Chloride) 100 mls @ 100 mls/hr IVPB Q8H [facility]; Protocol Last Admin: 07/17/18 04:03 Dose: 100 mls/hr Metronidazole (Flagyl) 500 mg in 100 mls @ 100 mls/hr IVPB Q8H [facility]; Protocol Last Admin: 07/17/18 05:08 Dose: 100 mls/hr Ketorolac Tromethamine (Toradol) 30 mg IVP Q6 [facility] Stop: 07/17/18 23:00 Last Admin: 07/17/18 06:02 Dose: 30 mg Lidocaine (Lidoderm) 1 ea TD DAILY [facility] Last Admin: 07/16/18 09:34 Dose: 1 ea Ondansetron HCl (Zofran Inj) 4 mg IVP Q4 PRN PRN Reason: Nausea/Vomiting Last Admin: 07/15/18 08:29 Dose: 4 mg Oxycodone HCl (Oxycontin Extended Release Tab) 10 mg PO Q12 PRN PRN Reason: Pain, moderate (4-7) Stop: 07/18/18 10:01 Pantoprazole Sodium (Protonix Inj) 40 mg IVP DAILY [facility] Last Admin: 07/16/18 09:33 Dose: 40 mg Potassium Chloride (K-Dur 20 Meq Er Tab) 40 meq PO ONCE ONE Stop: 07/17/18 16:30 Senna/Docusate Sodium (Senokot S 50 Mg-8.6 Mg) 1 tab PO DAILY [facility] Last Admin: 07/16/18 09:32 Dose: 1 tab - Labs Labs: 07/17/18 06:19 07/17/18 06:19 PT 16.3 SECONDS (9.7-12.2) H 07/14/18 06:34 INR 1.5 07/14/18 06:34 APTT 32.0 SECONDS (21-34) 07/14/18 06:34 <Samy Puga H - Last Filed: 07/17/18 12:26> Subjective - Date & Time of Evaluation Date of Evaluation: 07/17/18 Time of Evaluation: 11:20 - Subjective Subjective: Patient was seen and examined by me with the medical physics professor The patient reports he feels well. He continues to ambulate easily and also tolerating diet well He is continuing to use the incentive spirometry as well The drain is a serous sangenous color. He denied RUQ pain The culture returned and was E coli with broad sensitivity He is on meropenom and flagyl IV at this moment. Patient was wondering if he could go home with PO abx. Objective - Vital Signs/Intake and Output Vital Signs (last 24 hours): Temp Pulse Resp BP Pulse Ox 99.8 F H 71 20 149/88 97 07/17/18 00:00 07/17/18 00:00 07/17/18 00:00 07/17/18 00:00 07/17/18 00:00 Intake and Output: 07/17/18 07/17/18 06:59 18:59 Intake Total 495 Output Total 40 Balance 455 - Medications Medications: Current Medications Acetaminophen (Tylenol 325mg Tab) 650 mg PO Q6 PRN PRN Reason: Fever >100.4 F Last Admin: 07/14/18 20:12 Dose: 650 mg Cyclobenzaprine HCl (Flexeril) 5 mg PO Q8H [facility] Last Admin: 07/17/18 07:39 Dose: 5 mg Enoxaparin Sodium (Lovenox) 40 mg SC DAILY [facility] Last Admin: 07/17/18 10:05 Dose: 40 mg Meropenem 1 gm/ Sodium (Chloride) 100 mls @ 100 mls/hr IVPB Q8H [facility]; Protocol Last Admin: 07/17/18 04:03 Dose: 100 mls/hr Metronidazole (Flagyl) 500 mg in 100 mls @ 100 mls/hr IVPB Q8H [facility]; Protocol Last Admin: 07/17/18 05:08 Dose: 100 mls/hr Ketorolac Tromethamine (Toradol) 30 mg IVP Q6 [facility] Stop: 07/17/18 23:00 Last Admin: 07/17/18 06:02 Dose: 30 mg Lidocaine (Lidoderm) 1 ea TD DAILY [facility] Last Admin: 07/17/18 09:58 Dose: 1 ea Ondansetron HCl (Zofran Inj) 4 mg IVP Q4 PRN PRN Reason: Nausea/Vomiting Last Admin: 07/15/18 08:29 Dose: 4 mg Oxycodone HCl (Oxycontin Extended Release Tab) 10 mg PO Q12 PRN PRN Reason: Pain, moderate (4-7) Stop: 07/18/18 10:01 Last Admin: 07/17/18 08:11 Dose: 10 mg Pantoprazole Sodium (Protonix Inj) 40 mg IVP DAILY [facility] Last Admin: 07/17/18 09:58 Dose: 40 mg Potassium Chloride (K-Dur 20 Meq Er Tab) 40 meq PO ONCE ONE Stop: 07/17/18 16:30 Senna/Docusate Sodium (Senokot S 50 Mg-8.6 Mg) 1 tab PO DAILY [facility] Last Admin: 07/17/18 09:57 Dose: 1 tab - Labs Labs: 07/17/18 06:19 07/17/18 06:19 PT 16.3 SECONDS (9.7-12.2) H 07/14/18 06:34 INR 1.5 07/14/18 06:34 APTT 32.0 SECONDS (21-34) 07/14/18 06:34 - Constitutional Appears: Well, Non-toxic, No Acute Distress - Head Exam Head Exam: NORMAL INSPECTION, NORMOCEPHALIC - Eye Exam Eye Exam: EOMI, Normal appearance - ENT Exam ENT Exam: Mucous Membranes Moist - Respiratory Exam Respiratory Exam: Clear to Ausculation Bilateral, NORMAL BREATHING PATTERN - Cardiovascular Exam Cardiovascular Exam: REGULAR RHYTHM - GI/Abdominal Exam GI & Abdominal Exam: Soft, Normal Bowel Sounds. absent: Distended, Firm, Guarding, Tenderness Additional comments: He is wearing the abdominal pads, the abdomen is dry, there is no drainage, dressing is clean and intact. The drain has serous sangenuos fluid and is said to have 40cc out - Neurological Exam Neurological Exam: Alert, Awake, Normal Gait, Oriented x3 Neuro motor strength exam: Left Upper Extremity: 5, Right Upper Extremity: 5, Left Lower Extremity: 5, Right Lower Extremity: 5 - Psychiatric Exam Psychiatric exam: Normal Affect, Normal Mood - Skin Skin Exam: Normal Color, Warm Assessment and Plan - Assessment and Plan (Free Text) Assessment: 33 year old male POD#3 s/p robotic cholecystectomy, lysis of adhesions, liver biopsy, and liver abscess drainage Plan: Acute cholecystitis Liver abscess /4: Now POD 3 of robotic cholecystectomy, lysis of adhesions, liver biopsy, and liver abscess drainage The drain was 40 cc out last shift. His WBC is decreased. His Tmax was 99.8 The culture returned showing E coli with broad sensitivity. The patient at this time is on Meropenom and Flagyl IV -Surgery recs (Dr. Wylie) appreciated -POD #3 s/p robotic cholecystectomy, lysis of adhesions, liver biopsy, and liver abscess drainage -OOB to chair -abdominal binder in place -PT/activity encouraged -IS use encouraged -Pain control per surgical recs -oxycodone 10 mg PO q12 -Lidoderm patch 1 TD daily -flexeril 5 mg PO q8h -toradol 30 mg IVP q6 -ID recs (Dr. Johnston) appreciated -tissue cultures prelim: GNR -f/u finalized cultures -Flagyl 500 mg IVPB q8 -Merropenem 1 gm IVPB q8 Sepsis, resolved 07/17: As mentioned above the culture returned showing + Ecoli with broad sensitivity -fluids d/c'd -IV abx as per ID recs -zofran 4 mg IVP q4 prn for nausea -tylenol 650 mg PO q6 prn for fever Right Thigh Pain, resolved 07/17: Ambulating fine at this time. -CT R femur: Mild femorotibial compartment joint space narrowing at level of knee joint. Mild lateral subluxation of patella. Small suprapatellar joint effusion. -suspected referred pain Constipation -Senokot 1 tab PO daily PPx, Diet, Disposition -DVT ppx: scds, lovenox 40 mg SC daily -GI ppx: protonix 40 mg IVP daily -Diet: HHD
--- NOTE | 2018-07-17 07:50 | CP.PCM.PN ---
<Corona Edwards - Last Filed: 07/17/18 07:47> Subjective - Date & Time of Evaluation Date of Evaluation: 07/17/18 Time of Evaluation: 07:47 - Subjective Subjective: Surgery Progress note- Dr. Wylie No new complaints. tolerating regular diet. + Flatus and BM. Jose Elias drain in palce w/ 40cc serosang fluid/24 hrs. On IVAbx. Cx pending. Denies fevers, chills, chest pain, shortness of breath. Objective - Vital Signs/Intake and Output Vital Signs (last 24 hours): Temp Pulse Resp BP Pulse Ox 99.8 F H 71 20 149/88 97 07/17/18 00:00 07/17/18 00:00 07/17/18 00:00 07/17/18 00:00 07/17/18 00:00 Intake and Output: 07/17/18 07/17/18 06:59 18:59 Intake Total 495 Output Total 40 Balance 455 - Medications Medications: Current Medications Acetaminophen (Tylenol 325mg Tab) 650 mg PO Q6 PRN PRN Reason: Fever >100.4 F Last Admin: 07/14/18 20:12 Dose: 650 mg Cyclobenzaprine HCl (Flexeril) 5 mg PO Q8H [facility] Last Admin: 07/17/18 07:39 Dose: 5 mg Enoxaparin Sodium (Lovenox) 40 mg SC DAILY [facility] Last Admin: 07/16/18 09:32 Dose: 40 mg Meropenem 1 gm/ Sodium (Chloride) 100 mls @ 100 mls/hr IVPB Q8H [facility]; Protocol Last Admin: 07/17/18 04:03 Dose: 100 mls/hr Metronidazole (Flagyl) 500 mg in 100 mls @ 100 mls/hr IVPB Q8H [facility]; Protocol Last Admin: 07/17/18 05:08 Dose: 100 mls/hr Ketorolac Tromethamine (Toradol) 30 mg IVP Q6 [facility] Stop: 07/17/18 23:00 Last Admin: 07/17/18 06:02 Dose: 30 mg Lidocaine (Lidoderm) 1 ea TD DAILY [facility] Last Admin: 07/16/18 09:34 Dose: 1 ea Ondansetron HCl (Zofran Inj) 4 mg IVP Q4 PRN PRN Reason: Nausea/Vomiting Last Admin: 07/15/18 08:29 Dose: 4 mg Oxycodone HCl (Oxycontin Extended Release Tab) 10 mg PO Q12 PRN PRN Reason: Pain, moderate (4-7) Stop: 07/18/18 10:01 Pantoprazole Sodium (Protonix Inj) 40 mg IVP DAILY [facility] Last Admin: 07/16/18 09:33 Dose: 40 mg Potassium Chloride (K-Dur 20 Meq Er Tab) 40 meq PO ONCE ONE Stop: 07/17/18 16:30 Senna/Docusate Sodium (Senokot S 50 Mg-8.6 Mg) 1 tab PO DAILY [facility] Last Admin: 07/16/18 09:32 Dose: 1 tab - Labs Labs: 07/17/18 06:19 07/17/18 06:19 PT 16.3 SECONDS (9.7-12.2) H 07/14/18 06:34 INR 1.5 07/14/18 06:34 APTT 32.0 SECONDS (21-34) 07/14/18 06:34 - Constitutional Appears: Non-toxic, No Acute Distress - Head Exam Head Exam: ATRAUMATIC - Eye Exam Eye Exam: EOMI. absent: Scleral icterus - ENT Exam ENT Exam: Mucous Membranes Moist - Respiratory Exam Respiratory Exam: NORMAL BREATHING PATTERN. absent: Accessory Muscle Use, Respiratory Distress - Cardiovascular Exam Cardiovascular Exam: REGULAR RHYTHM. absent: Bradycardia, Tachycardia - GI/Abdominal Exam GI & Abdominal Exam: Soft, Tenderness (minimally tender around incision site). absent: Distended, Firm, Guarding, Rigid Additional comments: Jose Elias drain in place w/ serosang fluid - Extremities Exam Extremities Exam: absent: Calf Tenderness - Neurological Exam Neurological Exam: Alert, Awake, Oriented x3 - Psychiatric Exam Psychiatric exam: Normal Affect - Skin Skin Exam: Intact, Warm Assessment and Plan - Assessment and Plan (Free Text) Assessment: 33M robotic cholecystectomy, SIXTO, liver biopsy, liver abscess drainage POD#3 Plan: - monitor drain output - diet as tolerated - keep dressings in place till POD#5 - c/w IVAbx. f/u final cultures; - c/s ID- all recs appreciated; potential discharge on PO Abx for 3 weeks - further recs per Dr. Wylie surgical attending [facility] PGY2 <Vishal Wylie - Last Filed: 07/17/18 22:52> Objective - Vital Signs/Intake and Output Vital Signs (last 24 hours): Temp Pulse Resp BP Pulse Ox 99.8 F H 71 20 149/88 97 07/17/18 00:00 07/17/18 00:00 07/17/18 00:00 07/17/18 00:00 07/17/18 00:00 - Labs Labs: 07/17/18 06:19 07/17/18 06:19 PT 16.3 SECONDS (9.7-12.2) H 07/14/18 06:34 INR 1.5 07/14/18 06:34 APTT 32.0 SECONDS (21-34) 07/14/18 06:34 Attending/Attestation - Attestation I have fully participated in the care of the patient.: Yes I have reviewed all pertinent clinical information, including history, physical exam and plan: Yes Notes (Text): Pt is improving clinically As per ID, Pt can be DC home with Po antibiotics for 3 weeks Reg diet Keep drain for 3 weeks f.u as out pt Plan d.w pt in detail
[2018-07-17] MEDS: Docusate-Senna 50 mg-8.6 mg Tab PO SCH (09:57)
[2018-07-17] MEDS: Lidocaine 5% Patch TD SCH (09:58)
[2018-07-17] MEDS: Enoxaparin 40 mg Syringe SC SCH (10:05)
[2018-07-17] MEDS ORDERED: Potassium Chloride 20 mEq ER Tab PO ONE (16:29)
--- NOTE | 2018-07-17 16:46 | CP.PCM.DIS ---
<Rajesh Ray M - Last Filed: 07/17/18 16:36> Provider - Provider Date of Admission: 07/12/18 16:53 Attending physician: Samy Puga DO Consults: 07/12/18 16:54 General Surgery Consult Routine Comment: Consulting Provider: Vishal Wylie Consulting Physician: Vishal Wylie Reason for Consult: acute cholelithiasis 07/14/18 19:22 Infectious Disease Consult Routine Comment: Consulting Provider: Feroz Johnston Consulting Physician: Feroz Johnston Reason for Consult: Liver Abscess. Acute on chronic cholecystitis Time Spent in preparation of Discharge (in minutes): 40 Diagnosis - Discharge Diagnosis (1) Acute cholecystitis Status: Acute Comment: s/p cholecystetcomy (2) Pyogenic hepatic abscess Status: Acute Comment: cultures, ivab, to po ivbx Hospital Course - Lab Results Lab Results: Micro Results 07/14/18 18:46 Gallbladder Gram Stain - Final 07/14/18 18:46 Gallbladder Tissue Culture - Final Escherichia Coli 07/12/18 12:15 Blood Blood Culture - Preliminary NO GROWTH AFTER 4 DAYS 07/12/18 14:01 Blood Blood Culture - Preliminary NO GROWTH AFTER 4 DAYS 07/14/18 06:00 Other: Please Indicate Mycobacterial Culture - Preliminary 07/12/18 12:20 Urine Random Urine Culture - Final No Growth (<1,000 CFU/ML) Most Recent Lab Values WBC 9.6 K/uL (4.8-10.8) 07/17/18 06:19 RBC 4.33 Mil/uL (4.40-5.90) L 07/17/18 06:19 Hgb 13.1 g/dL (12.0-18.0) 07/17/18 06:19 Hct 38.7 % (35.0-51.0) 07/17/18 06:19 MCV 89.3 fL (80.0-94.0) 07/17/18 06:19 MCH 30.3 pg (27.0-31.0) 07/17/18 06:19 MCHC 33.9 g/dL (33.0-37.0) 07/17/18 06:19 RDW 12.5 % (11.5-14.5) 07/17/18 06:19 Plt Count 268 K/uL (130-400) 07/17/18 06:19 MPV 7.5 fL (7.2-11.7) 07/17/18 06:19 Neut % (Auto) 72.5 % (50.0-75.0) 07/17/18 06:19 Lymph % (Auto) 18.0 % (20.0-40.0) L 07/17/18 06:19 [place] % (Auto) 7.3 % (0.0-10.0) 07/17/18 06:19 Eos % (Auto) 1.9 % (0.0-4.0) 07/17/18 06:19 Baso % (Auto) 0.3 % (0.0-2.0) 07/17/18 06:19 Neut # (Auto) 7.0 K/uL (1.8-7.0) 07/17/18 06:19 Lymph # (Auto) 1.7 K/uL (1.0-4.3) 07/17/18 06:19 [place] # (Auto) 0.7 K/uL (0.0-0.8) 07/17/18 06:19 Eos # (Auto) 0.2 K/uL (0.0-0.7) 07/17/18 06:19 Baso # (Auto) 0.0 K/uL (0.0-0.2) 07/17/18 06:19 Neutrophils % (Manual) 80 % (50-75) H 07/13/18 07:13 Band Neutrophils % 5 % (0-2) H 07/13/18 07:13 Lymphocytes % (Manual) 5 % (20-40) L 07/13/18 07:13 Monocytes % (Manual) 10 % (0-10) 07/13/18 07:13 Platelet Estimate Normal (NORMAL) 07/13/18 07:13 RBC Morphology Normal 07/13/18 07:13 PT 16.3 SECONDS (9.7-12.2) H 07/14/18 06:34 INR 1.5 07/14/18 06:34 APTT 32.0 SECONDS (21-34) 07/14/18 06:34 pO2 21 mm/Hg (30-55) L 07/12/18 12:22 VBG pH 7.35 (7.32-7.43) 07/12/18 12:22 VBG pCO2 60 mmHg (40-60) 07/12/18 12:22 VBG HCO3 27.5 mmol/L 07/12/18 12:22 VBG Total CO2 34.9 mmol/L (22-28) H 07/12/18 12:22 VBG O2 Sat (Calc) 37.7 % (40-65) L 07/12/18 12:22 VBG Base Excess 5.6 mmol/L (0.0-2.0) H 07/12/18 12:22 VBG Potassium 3.9 mmol/L (3.6-5.2) 07/12/18 12:22 Sodium 131.0 mmol/l (132-148) L 07/12/18 12:22 Chloride 96.0 mmol/L (98-107) L 07/12/18 12:22 Glucose 121 mg/dl (75-110) H 07/12/18 12:22 Lactate 1.9 mmol/L (0.7-2.1) 07/12/18 12:22 Sodium 143 mmol/L (132-148) 07/17/18 06:19 Potassium 3.9 mmol/L (3.6-5.2) 07/17/18 06:19 Chloride 106 mmol/L (98-107) 07/17/18 06:19 Carbon Dioxide 29 mmol/L (22-30) 07/17/18 06:19 Anion Gap 12 (10-20) 07/17/18 06:19 BUN 7 mg/dL (9-20) L 07/17/18 06:19 Creatinine 0.8 mg/dL (0.8-1.5) 07/17/18 06:19 Est GFR ( Amer) > 60 07/17/18 06:19 Est GFR (Non-Af Amer) > 60 07/17/18 06:19 Random Glucose 107 mg/dL (75-110) 07/17/18 06:19 Hemoglobin A1c 5.4 % (4.2-6.5) 07/12/18 19:57 Calcium 8.7 mg/dl (8.6-10.4) 07/17/18 06:19 Phosphorus 3.2 mg/dL (2.5-4.5) 07/17/18 06:19 Magnesium 1.9 mg/dL (1.6-2.3) 07/17/18 06:19 Total Bilirubin 0.8 mg/dL (0.2-1.3) 07/17/18 06:19 AST 20 U/L (17-59) 07/17/18 06:19 ALT 32 U/L (21-72) 07/17/18 06:19 Alkaline Phosphatase 67 U/L (38-126) 07/17/18 06:19 Total Protein 6.4 g/dL (6.3-8.3) 07/17/18 06:19 Albumin 3.3 g/dL (3.5-5.0) L 07/17/18 06:19 Globulin 3.1 gm/dL (2.2-3.9) 07/17/18 06:19 Albumin/Globulin Ratio 1.0 (1.0-2.1) 07/17/18 06:19 Lipase 47 U/L (23-300) 07/12/18 19:57 Procalcitonin 1.68 NG/ML (0.19-0.49) H 07/12/18 19:57 Venous Blood Potassium 3.9 mmol/L (3.6-5.2) 07/12/18 12:22 Urine Color Yellow (YELLOW) 07/12/18 12:20 Urine Clarity Clear (Clear) 07/12/18 12:20 Urine pH 7.0 (5.0-8.0) 07/12/18 12:20 Ur Specific [place] 1.013 (1.003-1.030) 07/12/18 12:20 Urine Protein Negative mg/dL (NEGATIVE) 07/12/18 12:20 Urine Glucose (UA) Normal mg/dL (Normal) 07/12/18 12:20 Urine Ketones Negative mg/dL (NEGATIVE) 07/12/18 12:20 Urine Blood 1+ (NEGATIVE) H 07/12/18 12:20 Urine Nitrate Negative (NEGATIVE) 07/12/18 12:20 Urine Bilirubin Negative (NEGATIVE) 07/12/18 12:20 Urine Urobilinogen 4.0 mg/dL (0.2-1.0) 07/12/18 12:20 Ur Leukocyte Esterase Neg [place]/uL (Negative) 07/12/18 12:20 Urine WBC (Auto) 1 /hpf (0-5) 07/12/18 12:20 Urine RBC (Auto) 1 /hpf (0-3) 07/12/18 12:20 Ur Squamous Epith Cells < 1 /hpf (0-5) 07/12/18 12:20 Urine Opiates Screen Positive (NEGATIVE) H 07/12/18 12:20 Urine Methadone Screen Negative (NEGATIVE) 07/12/18 12:20 Ur Barbiturates Screen Negative (NEGATIVE) 07/12/18 12:20 Ur Phencyclidine Scrn Negative (NEGATIVE) 07/12/18 12:20 Ur Amphetamines Screen Negative (NEGATIVE) 07/12/18 12:20 U Benzodiazepines Scrn Positive (NEGATIVE) 07/12/18 12:20 U Oth Cocaine Metabols Negative (NEGATIVE) 07/12/18 12:20 U Cannabinoids Screen Negative (NEGATIVE) 07/12/18 12:20 Blood Type A POSITIVE 07/13/18 07:13 Antibody Screen Negative 07/13/18 07:13 - Hospital Course Hospital Course: HPI: Patient is a 33 year old male with no significant past medical history presenting to the ED with worsening R anterior/lateral thigh pain and associated diffuse abdominal pain for 1 week. He denies any inciting factors or trauma. He states the pain is sudden in onset and occurs intermittently, d escribed as an electrical sensation--"like someone is randomly tazing me". Pain is 10/10 in severity when it does occurs. He denies any lower back pain or radiation of pain down the knee or to the back of the thigh. He states that he took ~10 percocet pills he obtained from a friend over the past 3 days with no relief of symptoms. He also endorses associated diffuse abdominal pain, less severe in nature, during this time period. He denies any radiation of that pain as well. Patient also endorses subjective fevers and constipation. No chills, headaches, dizziness, chest pain, palpitations, sob, cough, nausea/vomiting/diarrhea, dysuria, or numbness/tingling of extremities. 12 pt ROS reviewed and otherwise negative. Hospital course: pt lower extremity testing, including CT and duplex negative. CT abd/plevis/ U/S/ HIDA, MRCP suggesting acute cholecystitis. During cholecystectomy, abscess found along with adhesions, ID consulted, IV meropenum & flaggyl added. Sensetivities return, sensitive to ciprofloxacin. elevated WBC & fevers resolved following procedure & medical therapy. Pt tolerated diet, passing bowel, had MADELEINE drain placed, to be removed outpatient. Above is only a summary of pt stay during hospitalization, see EMR for further details. Below are discharge instructions Patient is stable for discharge per Dr. Puga. Patient should follow up with a primary doctor within 1 week. Patient should follow up with General surgery, Dr. Wylie within 1 week. Patient should follow up with infectious disease, Dr. Johnston within 1 week. Please fill the following prescriptions and take as instructed: Flaggyl 500 mg, 1 tablet every 8 hours per mouth for 21 days Ciprofloxacin 500 mg, 1 tablet every 12 hours per mouth for 21 days Percocet, 1 tablet every 6 hours as needed for pain Please eat yogurt with probiotics while taking antibiotics. Please remove fluid in drain as instructed by nursing staff. No heavy lifting for 4- 6 weeks, nothing heavier than a gallon of milk in each hand Ok to resume normal diet- avoid constipation Ok to shower, as long as you keep dressings clean and dry (cover with plastic. You may remove the outer bandaids on 07/19, underneath you have a special tape, do not pull this off, this will fall off on it's own overtime. Once the outer bandaids are removed, you may shower, washing gently with soap and water Do not sit in water, go swimming, bathing, or hot tubing until cleared by Dr. Wylie Continue to walk Please call Dr. Wylie's office for a follow up appointment Please record how much drainage is coming out of your drain daily and take it with you to see Dr. Wylie If any of the symptoms return or worsen, please return to nearest emergency medical facility. Discharge Exam - Head Exam Head Exam: NORMAL INSPECTION, NORMOCEPHALIC - Eye Exam Eye Exam: EOMI, Normal appearance - ENT Exam ENT Exam: Mucous Membranes Moist - Respiratory Exam Respiratory Exam: Clear to PA & Lateral, NORMAL BREATHING PATTERN, UNREMARKABLE. absent: Chest Wall Tenderness, Decreased Breath Sounds, Rales, Rhonchi - Cardiovascular Exam Cardiovascular Exam: +S1, +S2. absent: Systolic Murmur - GI/Abdominal Exam GI & Abdominal Exam: Normal Bowel Sounds, Soft. absent: Hypoactive Bowel Sounds, Tenderness Additional comments: madeleine drain in place, billious drainage - Extremities Exam Additional comments: no pedal edema, calf tenderness - Back Exam Back exam: absent: CVA tenderness (L), CVA tenderness (R) - Neurological Exam Neurological exam: Alert, Oriented x3 - Psychiatric Exam Psychiatric exam: Normal Affect, Normal Mood - Skin Skin Exam: Dry, Intact, Normal Color, Warm Discharge Plan - Discharge Medications Prescriptions: Ciprofloxacin [Cipro] 500 mg PO Q12H 21 Days #42 tab metroNIDAZOLE [Flagyl] 500 mg PO Q8H #63 tab - Follow Up Plan Condition: STABLE Disposition: HOME/ ROUTINE Instructions: Ciprofloxacin (Systemic), Low Cholesterol, Saturated Fat, and Trans Fat Diet , Rigo-Hansen Drain, Metronidazole (Systemic), Cholecystectomy, Laparoscopic Surgery, Oxycodone and Acetaminophen, How to Keep Track of Your Drainage, Cholecystitis (DC), Cholecystitis (GEN), Abscess (ED) Additional Instructions: Patient is stable for discharge per Dr. Puga. Patient should follow up with a primary doctor within 1 week. Patient should follow up with General surgery, Dr. Wylie within 1 week. Patient should follow up with infectious disease, Dr. Johnston within 1 week. Please fill the following prescriptions and take as instructed: Flaggyl 500 mg, 1 tablet every 8 hours per mouth for 21 days Ciprofloxacin 500 mg, 1 tablet every 12 hours per mouth for 21 days Percocet, 1 tablet every 6 hours as needed for pain Please eat yogurt with probiotics while taking antibiotics. Please remove fluid in drain as instructed by nursing staff. No heavy lifting for 4- 6 weeks, nothing heavier than a gallon of milk in each hand Ok to resume normal diet- avoid constipation Ok to shower, as long as you keep dressings clean and dry (cover with plastic. You may remove the outer bandaids on 07/19, underneath you have a special tape, do not pull this off, this will fall off on it's own overtime. Once the outer bandaids are removed, you may shower, washing gently with soap and water Do not sit in water, go swimming, bathing, or hot tubing until cleared by Dr. Vincent reardon Continue to walk Please call Dr. Wylie's office for a follow up appointment Please record how much drainage is coming out of your drain daily and take it with you to see Dr. Wylie If any of the symptoms return or worsen, please return to nearest emergency medical facility. Referrals: Feroz Johnston MD [Staff Provider] - Vishal Wylie MD [Staff Provider] - <Samy Puga - Last Filed: 07/18/18 07:23> Provider - Provider Date of Admission: 07/12/18 16:53 Attending physician: Samy Puga DO Consults: 07/12/18 16:54 General Surgery Consult Routine Comment: Consulting Provider: Vishal Wylie Consulting Physician: Vishal Wylie Reason for Consult: acute cholelithiasis 07/14/18 19:22 Infectious Disease Consult Routine Comment: Consulting Provider: Feroz Johnston Consulting Physician: Feroz Johnston Reason for Consult: Liver Abscess. Acute on chronic cholecystitis Hospital Course - Lab Results Lab Results: Micro Results 07/12/18 12:15 Blood Blood Culture - Final NO GROWTH AFTER 5 DAYS 07/12/18 12:15 Blood Gram Stain - Final TEST NOT PERFORMED 07/12/18 14:01 Blood Blood Culture - Final NO GROWTH AFTER 5 DAYS 07/12/18 14:01 Blood Gram Stain - Final TEST NOT PERFORMED 07/14/18 18:46 Gallbladder Gram Stain - Final 07/14/18 18:46 Gallbladder Tissue Culture - Final Escherichia Coli 07/14/18 06:00 Other: Please Indicate Mycobacterial Culture - Preliminary 07/12/18 12:20 Urine Random Urine Culture - Final No Growth (<1,000 CFU/ML) Most Recent Lab Values WBC 9.6 K/uL (4.8-10.8) 07/17/18 06:19 RBC 4.33 Mil/uL (4.40-5.90) L 07/17/18 06:19 Hgb 13.1 g/dL (12.0-18.0) 07/17/18 06:19 Hct 38.7 % (35.0-51.0) 07/17/18 06:19 MCV 89.3 fL (80.0-94.0) 07/17/18 06:19 MCH 30.3 pg (27.0-31.0) 07/17/18 06:19 MCHC 33.9 g/dL (33.0-37.0) 07/17/18 06:19 RDW 12.5 % (11.5-14.5) 07/17/18 06:19 Plt Count 268 K/uL (130-400) 07/17/18 06:19 MPV 7.5 fL (7.2-11.7) 07/17/18 06:19 Neut % (Auto) 72.5 % (50.0-75.0) 07/17/18 06:19 Lymph % (Auto) 18.0 % (20.0-40.0) L 07/17/18 06:19 [place] % (Auto) 7.3 % (0.0-10.0) 07/17/18 06:19 Eos % (Auto) 1.9 % (0.0-4.0) 07/17/18 06:19 Baso % (Auto) 0.3 % (0.0-2.0) 07/17/18 06:19 Neut # (Auto) 7.0 K/uL (1.8-7.0) 07/17/18 06:19 Lymph # (Auto) 1.7 K/uL (1.0-4.3) 07/17/18 06:19 [place] # (Auto) 0.7 K/uL (0.0-0.8) 07/17/18 06:19 Eos # (Auto) 0.2 K/uL (0.0-0.7) 07/17/18 06:19 Baso # (Auto) 0.0 K/uL (0.0-0.2) 07/17/18 06:19 Neutrophils % (Manual) 80 % (50-75) H 07/13/18 07:13 Band Neutrophils % 5 % (0-2) H 07/13/18 07:13 Lymphocytes % (Manual) 5 % (20-40) L 07/13/18 07:13 Monocytes % (Manual) 10 % (0-10) 07/13/18 07:13 Platelet Estimate Normal (NORMAL) 07/13/18 07:13 RBC Morphology Normal 07/13/18 07:13 PT 16.3 SECONDS (9.7-12.2) H 07/14/18 06:34 INR 1.5 07/14/18 06:34 APTT 32.0 SECONDS (21-34) 07/14/18 06:34 pO2 21 mm/Hg (30-55) L 07/12/18 12:22 VBG pH 7.35 (7.32-7.43) 07/12/18 12:22 VBG pCO2 60 mmHg (40-60) 07/12/18 12:22 VBG HCO3 27.5 mmol/L 07/12/18 12:22 VBG Total CO2 34.9 mmol/L (22-28) H 07/12/18 12:22 VBG O2 Sat (Calc) 37.7 % (40-65) L 07/12/18 12:22 VBG Base Excess 5.6 mmol/L (0.0-2.0) H 07/12/18 12:22 VBG Potassium 3.9 mmol/L (3.6-5.2) 07/12/18 12:22 Sodium 131.0 mmol/l (132-148) L 07/12/18 12:22 Chloride 96.0 mmol/L (98-107) L 07/12/18 12:22 Glucose 121 mg/dl (75-110) H 07/12/18 12:22 Lactate 1.9 mmol/L (0.7-2.1) 07/12/18 12:22 Sodium 143 mmol/L (132-148) 07/17/18 06:19 Potassium 3.9 mmol/L (3.6-5.2) 07/17/18 06:19 Chloride 106 mmol/L (98-107) 07/17/18 06:19 Carbon Dioxide 29 mmol/L (22-30) 07/17/18 06:19 Anion Gap 12 (10-20) 07/17/18 06:19 BUN 7 mg/dL (9-20) L 07/17/18 06:19 Creatinine 0.8 mg/dL (0.8-1.5) 07/17/18 06:19 Est GFR ( Amer) > 60 07/17/18 06:19 Est GFR (Non-Af Amer) > 60 07/17/18 06:19 Random Glucose 107 mg/dL (75-110) 07/17/18 06:19 Hemoglobin A1c 5.4 % (4.2-6.5) 07/12/18 19:57 Calcium 8.7 mg/dl (8.6-10.4) 07/17/18 06:19 Phosphorus 3.2 mg/dL (2.5-4.5) 07/17/18 06:19 Magnesium 1.9 mg/dL (1.6-2.3) 07/17/18 06:19 Total Bilirubin 0.8 mg/dL (0.2-1.3) 07/17/18 06:19 AST 20 U/L (17-59) 07/17/18 06:19 ALT 32 U/L (21-72) 07/17/18 06:19 Alkaline Phosphatase 67 U/L (38-126) 07/17/18 06:19 Total Protein 6.4 g/dL (6.3-8.3) 07/17/18 06:19 Albumin 3.3 g/dL (3.5-5.0) L 07/17/18 06:19 Globulin 3.1 gm/dL (2.2-3.9) 07/17/18 06:19 Albumin/Globulin Ratio 1.0 (1.0-2.1) 07/17/18 06:19 Lipase 47 U/L (23-300) 07/12/18 19:57 Procalcitonin 1.68 NG/ML (0.19-0.49) H 07/12/18 19:57 Venous Blood Potassium 3.9 mmol/L (3.6-5.2) 07/12/18 12:22 Urine Color Yellow (YELLOW) 07/12/18 12:20 Urine Clarity Clear (Clear) 07/12/18 12:20 Urine pH 7.0 (5.0-8.0) 07/12/18 12:20 Ur Specific [place] 1.013 (1.003-1.030) 07/12/18 12:20 Urine Protein Negative mg/dL (NEGATIVE) 07/12/18 12:20 Urine Glucose (UA) Normal mg/dL (Normal) 07/12/18 12:20 Urine Ketones Negative mg/dL (NEGATIVE) 07/12/18 12:20 Urine Blood 1+ (NEGATIVE) H 07/12/18 12:20 Urine Nitrate Negative (NEGATIVE) 07/12/18 12:20 Urine Bilirubin Negative (NEGATIVE) 07/12/18 12:20 Urine Urobilinogen 4.0 mg/dL (0.2-1.0) 07/12/18 12:20 Ur Leukocyte Esterase Neg [place]/uL (Negative) 07/12/18 12:20 Urine WBC (Auto) 1 /hpf (0-5) 07/12/18 12:20 Urine RBC (Auto) 1 /hpf (0-3) 07/12/18 12:20 Ur Squamous Epith Cells < 1 /hpf (0-5) 07/12/18 12:20 Urine Opiates Screen Positive (NEGATIVE) H 07/12/18 12:20 Urine Methadone Screen Negative (NEGATIVE) 07/12/18 12:20 Ur Barbiturates Screen Negative (NEGATIVE) 07/12/18 12:20 Ur Phencyclidine Scrn Negative (NEGATIVE) 07/12/18 12:20 Ur Amphetamines Screen Negative (NEGATIVE) 07/12/18 12:20 U Benzodiazepines Scrn Positive (NEGATIVE) 07/12/18 12:20 U Oth Cocaine Metabols Negative (NEGATIVE) 07/12/18 12:20 U Cannabinoids Screen Negative (NEGATIVE) 07/12/18 12:20 Blood Type A POSITIVE 07/13/18 07:13 Antibody Screen Negative 07/13/18 07:13 Attending/Attestation - Attestation I have personally seen and examined this patient.: Yes I have fully participated in the care of the patient.: Yes I have reviewed all pertinent clinical information, including history, physical exam and plan: Yes Notes (Text): 07/18/18 07:19 Medical attending: Patient was seen and examined by me. Agree with the above note by the resident The patient was actively walking around in the hallway. He was tolerating his diet and reported feeling well. His pain was under control he said. The patient's WBC was stable. The patient's culture from the surgery showed E coli and he had IV abx for several days with IV Meropenom. The E coli was broadly sensistive to abx with an 0.25 JOHNATHON to Cipro so he was discharged with PO abx Patient has the drain and fluid is less and is minmal serosangenous fluid Samy Puga
== END 2018-07-17 16:10 | disposition home or self-care (01) | DRG 263 ==
LOC: C.ER 10:39 → C.9E 16:53 → C.3T 18:01
PROVIDERS: ADMIT Hospitalist; ATTEND Hospitalist
PROC: 0FB04ZX Excision of Liver, Percutaneous Endoscopic Approach, Diagnostic (ICD-10-PCS; 2018-07-14)
PROC: 0F9040Z Drainage of Liver with Drainage Device, Percutaneous Endoscopic Approach (ICD-10-PCS; 2018-07-14)
PROC: 8E0W4CZ Robotic Assisted Procedure of Trunk Region, Percutaneous Endoscopic Approach (ICD-10-PCS; 2018-07-14)
PROC: 0F944ZZ Drainage of Gallbladder, Percutaneous Endoscopic Approach (ICD-10-PCS; 2018-07-14)
PROC: 0FT44ZZ Resection of Gallbladder, Percutaneous Endoscopic Approach (ICD-10-PCS; principal; 2018-07-14 15:00)
DX: K80.12 Calculus of gallbladder with acute and chronic cholecystitis without obstruction (principal); K75.0 Abscess of liver; K82.8 Other specified diseases of gallbladder; K59.00 Constipation, unspecified; T40.2X5A Adverse effect of other opioids, initial encounter; G89.21 Chronic pain due to trauma; M25.551 Pain in right hip